=== PATIENT | male | born 1980 | race Caucasian/White ===

== ENCOUNTER 2017-10-20 22:07 | Emergency (ER) | payer MEDICAID ==
[~2017-10-20] VITALS: Ht 185.4 cm; Wt 120.5 kg
[~2017-10-20 22:07] MED LIST: CEPH500C5 PO; CLIN-79 PO; GUAI120015 PO; IBUP-1985 PO; METO50TA17 PO; PANT-47 PO; PANT20TA3 PO; PHEN-716 PO; marijuana
[2017-10-20 22:13] VITALS: BP 161/109
[2017-10-20] MEDS ORDERED: HYDROcodone/acetaminophen 10/325mg tab PO ONE (22:20)
[2017-10-20] MEDS ORDERED: penicillin V potassium 500mg tablet PO ONE (22:20)
[2017-10-20] MEDS ORDERED: PENI500T2 PO (22:21)
[2017-10-20] MEDS ORDERED: HYDR-565 PO (22:22)
== END 2017-10-20 22:30 | disposition home or self-care (01) ==
LOC: ER 22:07
DX: K02.9 Dental caries, unspecified (principal); I10 Essential (primary) hypertension; G43.909 Migraine, unspecified, not intractable, without status migrainosus; F12.10 Cannabis abuse, uncomplicated; Z86.718 Personal history of other venous thrombosis and embolism; Z90.49 Acquired absence of other specified parts of digestive tract; Z98.890 Other specified postprocedural states; Z79.899 Other long term (current) drug therapy
CPT/HCPCS: 99283

== ENCOUNTER 2017-11-07 12:00 | Emergency (ER) | payer MEDICAID ==
[~2017-11-07] VITALS: Ht 185.4 cm; Wt 124.0 kg
[~2017-11-07 12:00] MED LIST changes: -CEPH500C5 PO; +HYDR-565 PO; +PENI500T2 PO
[2017-11-07 12:57] LABS: BASOPHILS % (AUTO) 0 % (0-1); EOSINOPHILS % (AUTO) 0.2 % (0-6); HEMATOCRIT 39.3 % (42.0-52.0); HEMOGLOBIN 13.7 g/dl (14.0-17.9); LYMPHOCYTES # (AUTO) 0.5 X10'3 (1.1-4.8); LYMPHOCYTES % (AUTO) 3.1 % (21-51); MEAN CORPUSCULAR HEMOGLOBIN 28.6 PG (27.0-31.0); MEAN CORPUSCULAR HGB CONC 34.8 % (33.0-36.5); MEAN CORPUSCULAR VOLUME 82.1 FL (78-98); MEAN PLATELET VOLUME 9.5 FL (7.4-10.4); MONOCYTES # (AUTO) 1.3 X10'3 (0-0.9); MONOCYTES % (AUTO) 7.8 % (2-12); NEUTROPHILS # (AUTO) 14.7 X10'3 (1.8-7.7); NEUTROPHILS % (AUTO) 88.9 % (42-75); PLATELET COUNT 164 X10'3 (140-440); RED BLOOD COUNT 4.79 X10'6 (4.70-6.10); RED CELL DISTRIBUTION WIDTH 13.9 % (11.5-14.5); WHITE BLOOD COUNT 16.5 X10'3 (4.5-11.0)
[2017-11-07 13:10] LABS: INR 1.2 INR; PARTIAL THROMBOPLASTIN TIME 32 SECONDS (22-32); PROTHROMBIN TIME 12.3 SECONDS (9.0-12.0)
[2017-11-07 13:24] LABS: ALANINE AMINOTRANSFERASE 38 U/L (12-78); ALBUMIN 3.4 G/DL (3.4-5.0); ALBUMIN/GLOBULIN RATIO 0.8 (1.1-1.5); ALKALINE PHOSPHATASE 86 IU/L (46-116); ANION GAP 12 (8-16); ASPARTATE AMINO TRANSFERASE 22 U/L (10-37); BILIRUBIN,TOTAL 0.7 MG/DL (0.1-1.0); BLOOD UREA NITROGEN 12 MG/DL (7-18); BUN/CREATININE RATIO 10.9 (5.4-32.0); CHLORIDE 101 MMOL/L (99-107); GLUCOSE 135 MG/DL (70-104); SODIUM 137 MMOL/L (135-145); TOTAL CARBON DIOXIDE 23.7 MMOL/L (24-32); TOTAL PROTEIN 7.7 G/DL (6.4-8.2); eGFR 75 ML/MIN
[2017-11-07 13:27] LABS: POTASSIUM 2.8 MMOL/L (3.5-5.1)
[2017-11-07 13:58] LABS: CLARITY,URINE CLOUDY (Clear); COLOR,URINE YELLOW (Yellow); GLUCOSE, URINE NEGATIVE (Neg); KETONES,URINE TRACE mg/dl (Neg); LEUKOCYTE ESTERASE ,URINE MODERATE (Neg); NITRITES, URINE POSITIVE (Neg); OCCULT BLOOD,URINE LARGE (Neg); PH,URINE 6.5 (4.8-8.0); PROTEIN,URINE 100 mg/dl (Neg)
[2017-11-07 14:16] LABS: UA COLLECTION TYPE URINAL
[2017-11-07 14:20] LABS: BACTERIA,URINE 1+ /HPF (Neg); RBC,URINE 50-100 /HPF (0-2); WBC,URINE 30-50 /HPF (0-4)
[2017-11-07 14:21] LABS: MUCUS STRANDS FEW /LPF (Neg); SQUAMOUS EPITHELIAL CELL,UR MANY /LPF (FEW)
[2017-11-07] MEDS ORDERED: normal saline 1000ML IV soln IV ONE (14:25)
[2017-11-07] MEDS ORDERED: ketorolac trometh. 30mg/ml inj. IV ONE (14:25)
[2017-11-07] MEDS ORDERED: potassium 10mEq/100ml NS w/LIDOcaine (10mg/bag) IV ONE (14:25)
[2017-11-07] MEDS ORDERED: ondansetron/PF 4mg/2ml inj IV ONE (14:25)
[2017-11-07 14:37] LABS: MAGNESIUM 1.5 MG/DL (1.5-2.4)
[2017-11-07 14:55] LABS: CLARITY,URINE CLOUDY (Clear); COLOR,URINE YELLOW (Yellow); GLUCOSE, URINE NEGATIVE (Neg); KETONES,URINE TRACE mg/dl (Neg); LEUKOCYTE ESTERASE ,URINE MODERATE (Neg); NITRITES, URINE NEGATIVE (Neg); OCCULT BLOOD,URINE LARGE (Neg); PH,URINE 6.5 (4.8-8.0); PROTEIN,URINE 30 mg/dl (Neg); UROBILINOGEN,URINE 0.2 E.U/dL (0.2-1.0)
[2017-11-07 15:02] LABS: UA COLLECTION TYPE URINAL
[2017-11-07 15:09] LABS: BACTERIA,URINE 2+ /HPF (Neg); MUCUS STRANDS NONE SEEN /LPF (Neg); RBC,URINE 20-50 /HPF (0-2); RENAL CELLS, URINE FEW /HPF; SQUAMOUS EPITHELIAL CELL,UR MODERATE /LPF (FEW); WBC CLUMPS,URINE MODERATE /HPF (NEGATIVE); WBC,URINE 50-100 /HPF (0-4)
[2017-11-07 15:15] LABS: URINE AMPHETAMINE SCREEN NEGATIVE (Neg); URINE BARBITUATE SCREEN NEGATIVE (Neg); URINE BENZODIAZEPINES SCREEN NEGATIVE (Neg); URINE CANNABINOID SCREEN POSITIVE (Neg); URINE COCAINE SCREEN NEGATIVE (Neg); URINE METHADONE SCREEN NEGATIVE (Neg); URINE OPIATE SCREEN NEGATIVE (Neg); URINE PHENCYCLIDINE SCREEN NEGATIVE (Neg)
[2017-11-07] MEDS ORDERED: CefTRIAXone 2gm/NS 100ml IVPB 100 ML IV ONE (16:10)
[2017-11-07] MEDS ORDERED: diphenhydrAMINE 50 mg/ml inj IV ONE (16:15)
[2017-11-07] MEDS ORDERED: HYDROmorphone 1 mg/ml syringe IV PRN (16:15)
[2017-11-07] MEDS ORDERED: metoclopramide 5 mg/ml inj IV ONE (16:15)
[2017-11-07] MEDS ORDERED: LORazepam 2 mg/ml vial IV ONE (16:15)
[2017-11-07] MEDS ORDERED: potassium Cl 20 mEq SR tablet PO ONE (17:15)
[2017-11-07] MEDS ORDERED: IBUP-1986 PO (17:57)
[2017-11-07] MEDS ORDERED: TAM75C PO (17:57)
[2017-11-07] MEDS ORDERED: TRAM50TA2 PO (17:57)
[2017-11-07] MEDS ORDERED: ONDA4TAB12 PO (17:57)
[2017-11-07] MEDS ORDERED: CEPH500C2 PO (17:57)
[2017-11-07 18:13] VITALS: BP 122/67
== END 2017-11-07 18:18 | disposition home or self-care (01) ==
LOC: ER 12:00
DX: N39.0 Urinary tract infection, site not specified (principal); J09.X2 Influenza due to identified novel influenza A virus with other respiratory manifestations; G43.909 Migraine, unspecified, not intractable, without status migrainosus; I10 Essential (primary) hypertension; F17.210 Nicotine dependence, cigarettes, uncomplicated; F12.10 Cannabis abuse, uncomplicated; Z86.718 Personal history of other venous thrombosis and embolism; Z90.49 Acquired absence of other specified parts of digestive tract; Z98.890 Other specified postprocedural states; Z79.899 Other long term (current) drug therapy; Z56.0 Unemployment, unspecified
CPT/HCPCS: 36415; 71045; 80053; 80305; 81001; 83605; 83735; 84145; 85025; 85610; 85730; 87040; 87077; 87088; 87186; 87491; 87502; 87503; 87591; 93005; 96361; 96365; 96375; 99285; J0696; J1200; J1885; J2060; J2405; J2765; J3480; J7030; 96374

== ENCOUNTER 2017-11-09 11:22 | Emergency (ER) | payer MEDICAID ==
[~2017-11-09] VITALS: Ht 185.4 cm; Wt 122.0 kg
[~2017-11-09 11:22] MED LIST changes: +CEPH500C2 PO; +IBUP-1986 PO; +ONDA4TAB12 PO; +TAM75C PO; +TRAM50TA2 PO
[2017-11-09] MEDS ORDERED: FLO0.4C PO (12:11)
[2017-11-09] MEDS ORDERED: PHEN-716 PO (12:11)
[2017-11-09 12:21] VITALS: BP 135/65
== END 2017-11-09 12:32 | disposition home or self-care (01) ==
LOC: ER 11:22
DX: N39.0 Urinary tract infection, site not specified (principal); I10 Essential (primary) hypertension; G43.909 Migraine, unspecified, not intractable, without status migrainosus; F12.10 Cannabis abuse, uncomplicated
CPT/HCPCS: 99283

== ENCOUNTER 2017-11-11 01:10 | Emergency (ER) | payer MEDICAID ==
[~2017-11-11] VITALS: Ht 185.4 cm; Wt 121.3 kg
[~2017-11-11 01:10] MED LIST changes: +FLO0.4C PO; -GUAI120015 PO; -HYDR-565 PO; -METO50TA17 PO; -PANT-47 PO; -PANT20TA3 PO; -PENI500T2 PO
[2017-11-11] MEDS ORDERED: morphine 5 MG/ML injection IV ONE (01:45)
[2017-11-11] MEDS ORDERED: ondansetron/PF 4mg/2ml inj IV ONE (01:45)
[2017-11-11 02:06] LABS: BASOPHILS % (AUTO) 0.3 % (0-1); EOSINOPHILS % (AUTO) 0.4 % (0-6); HEMATOCRIT 38.8 % (42.0-52.0); HEMOGLOBIN 13.5 g/dl (14.0-17.9); LYMPHOCYTES # (AUTO) 1.6 X10'3 (1.1-4.8); LYMPHOCYTES % (AUTO) 15.5 % (21-51); MEAN CORPUSCULAR HEMOGLOBIN 28.5 PG (27.0-31.0); MEAN CORPUSCULAR HGB CONC 34.8 % (33.0-36.5); MEAN CORPUSCULAR VOLUME 81.7 FL (78-98); MEAN PLATELET VOLUME 9.3 FL (7.4-10.4); MONOCYTES # (AUTO) 0.8 X10'3 (0-0.9); MONOCYTES % (AUTO) 7.9 % (2-12); NEUTROPHILS # (AUTO) 7.8 X10'3 (1.8-7.7); NEUTROPHILS % (AUTO) 75.9 % (42-75); PLATELET COUNT 236 X10'3 (140-440); RED BLOOD COUNT 4.75 X10'6 (4.70-6.10); RED CELL DISTRIBUTION WIDTH 13.9 % (11.5-14.5); WHITE BLOOD COUNT 10.3 X10'3 (4.5-11.0)
[2017-11-11] MEDS ORDERED: iohexol 300mg/ml 100ml inj. ONE (02:10)
[2017-11-11] MEDS ORDERED: LORazepam 2 mg/ml vial IV ONE (02:15)
[2017-11-11] MEDS ORDERED: ketorolac trometh. 30mg/ml inj. IV ONE (02:15)
[2017-11-11 02:21] LABS: ALANINE AMINOTRANSFERASE 51 U/L (12-78); ALBUMIN 3.6 G/DL (3.4-5.0); ALBUMIN/GLOBULIN RATIO 0.8 (1.1-1.5); ALKALINE PHOSPHATASE 96 IU/L (46-116); ANION GAP 9 (8-16); ASPARTATE AMINO TRANSFERASE 27 U/L (10-37); BILIRUBIN,TOTAL 0.4 MG/DL (0.1-1.0); BLOOD UREA NITROGEN 14 MG/DL (7-18); BUN/CREATININE RATIO 11.7 (5.4-32.0); CALCIUM 8.1 MG/DL (8.5-10.1); CHLORIDE 107 MMOL/L (99-107); GLUCOSE 101 MG/DL (70-104); SODIUM 143 MMOL/L (135-145); TOTAL CARBON DIOXIDE 26.6 MMOL/L (24-32); eGFR 68 ML/MIN
[2017-11-11 02:31] LABS: POTASSIUM 2.9 MMOL/L (3.5-5.1)
[2017-11-11 02:43] LABS: URINE AMPHETAMINE SCREEN NEGATIVE (Neg); URINE BARBITUATE SCREEN NEGATIVE (Neg); URINE BENZODIAZEPINES SCREEN NEGATIVE (Neg); URINE CANNABINOID SCREEN POSITIVE (Neg); URINE COCAINE SCREEN NEGATIVE (Neg); URINE METHADONE SCREEN NEGATIVE (Neg); URINE OPIATE SCREEN POSITIVE (Neg); URINE PHENCYCLIDINE SCREEN NEGATIVE (Neg)
[2017-11-11 02:58] LABS: CLARITY,URINE CLEAR (Clear); COLOR,URINE ORANGE (Yellow); GLUCOSE, URINE 250 mg/dl (Neg); LEUKOCYTE ESTERASE ,URINE SMALL (Neg); OCCULT BLOOD,URINE MODERATE (Neg)
[2017-11-11 03:02] LABS: UA COLLECTION TYPE CLN CATCH MIDSTREAM
[2017-11-11] MEDS ORDERED: potassium chloride 10mEq CAPSULE.SA PO STA (03:41)
[2017-11-11 03:46] LABS: RBC,URINE 20-50 /HPF (0-2); WBC,URINE 20-30 /HPF (0-4)
[2017-11-11 03:47] LABS: BACTERIA,URINE FEW /HPF (Neg); MUCUS STRANDS MODERATE /LPF (Neg); SPERM FEW /HPF (NEGATIVE); SQUAMOUS EPITHELIAL CELL,UR MODERATE /LPF (FEW)
[2017-11-11] MEDS ORDERED: cefTRIAXone 1g/NS 100ml IVPB 100 ML IV ONE (03:50)
[2017-11-11] MEDS ORDERED: potassium Cl 20 mEq SR tablet PO STA (03:55)
[2017-11-11] MEDS ORDERED: cefTRIAXone 1g/NS 100ml IVPB 50 ML IV ONE (03:55)
[2017-11-11] MEDS ORDERED: HYDR-3965 PO (03:59)
[2017-11-11] MEDS ORDERED: IBUP-1986 PO (03:59)
[2017-11-11] MEDS ORDERED: CIPR-259 PO (03:59)
[2017-11-11] MEDS ORDERED: CefTRIAXone 1 gm/50ml D5W ADV 50 ML IV ONE (04:15)
[2017-11-11] MEDS ORDERED: CefTRIAXone/D5W-Rocephin 1gm 50 ML IV ONE (04:18)
[2017-11-11 04:50] VITALS: BP 124/69
== END 2017-11-11 04:53 | disposition home or self-care (01) ==
LOC: ER 01:11
DX: N39.0 Urinary tract infection, site not specified (principal); G43.909 Migraine, unspecified, not intractable, without status migrainosus; I10 Essential (primary) hypertension; F12.90 Cannabis use, unspecified, uncomplicated; Z90.49 Acquired absence of other specified parts of digestive tract; Z86.718 Personal history of other venous thrombosis and embolism; Z56.0 Unemployment, unspecified; Z98.890 Other specified postprocedural states
CPT/HCPCS: 36415; 74177; 80053; 80305; 81001; 83605; 85025; 87088; 96365; 96375; 99285; J0696; J1885; J2060; J2405; J7030; Q9967

== ENCOUNTER 2017-12-08 16:06 | Emergency (ER) | payer MEDICAID ==
[~2017-12-08] VITALS: Ht 185.4 cm; Wt 118.3 kg
[~2017-12-08 16:06] MED LIST changes: +HYDR-3965 PO; -TAM75C PO
[2017-12-08] MEDS ORDERED: predniSONE 20 mg tablet PO ONE (18:20)
[2017-12-08] MEDS ORDERED: diphenhydrAMINE 25mg capsule PO ONE (18:20)
[2017-12-08] MEDS ORDERED: triamcinolone acetonide 40mg/ml inj IM ONE (18:20)
[2017-12-08] MEDS ORDERED: TRIA15CR61 TOP (18:24)
[2017-12-08] MEDS ORDERED: HYDR28CR14 TOP (18:24)
[2017-12-08] MEDS ORDERED: PRED20TA PO (18:24)
[2017-12-08] MEDS ORDERED: DIPH25CA83 PO (18:24)
[2017-12-08 18:37] VITALS: BP 130/78
== END 2017-12-08 18:40 | disposition home or self-care (01) ==
LOC: ER 16:06
DX: L23.7 Allergic contact dermatitis due to plants, except food (principal); F12.10 Cannabis abuse, uncomplicated; I10 Essential (primary) hypertension; G43.909 Migraine, unspecified, not intractable, without status migrainosus; Z86.718 Personal history of other venous thrombosis and embolism; Z98.890 Other specified postprocedural states; Z79.899 Other long term (current) drug therapy; Z56.0 Unemployment, unspecified
CPT/HCPCS: 96372; 99283; J3301; J7512; Q0163

== ENCOUNTER 2017-12-15 09:49 | Emergency (ER) | payer MEDICAID ==
[~2017-12-15] VITALS: Ht 185.4 cm; Wt 116.0 kg
[~2017-12-15 09:49] MED LIST changes: -CEPH500C2 PO; +DIPH25CA83 PO; -FLO0.4C PO; -HYDR-3965 PO; +HYDR28CR14 TOP; +PRED20TA PO; -TRAM50TA2 PO; +TRIA15CR61 TOP
[2017-12-15] MEDS ORDERED: triamcinolone acetonide 40mg/ml inj IM ONE (10:35)
[2017-12-15] MEDS ORDERED: PRED20TA PO (10:37)
[2017-12-15 10:46] VITALS: BP 126/79
== END 2017-12-15 10:47 | disposition home or self-care (01) ==
LOC: ER 09:49
DX: L23.7 Allergic contact dermatitis due to plants, except food (principal); G43.909 Migraine, unspecified, not intractable, without status migrainosus; I10 Essential (primary) hypertension; F12.10 Cannabis abuse, uncomplicated; Z86.718 Personal history of other venous thrombosis and embolism; Z90.49 Acquired absence of other specified parts of digestive tract; Z98.890 Other specified postprocedural states; Z56.0 Unemployment, unspecified; Z79.899 Other long term (current) drug therapy
CPT/HCPCS: 96372; 99283; J3301

== ENCOUNTER 2018-02-11 13:52 | Emergency (ER) | payer MEDICAID ==
[~2018-02-11] VITALS: Ht 185.4 cm; Wt 109.1 kg
[~2018-02-11 13:52] MED LIST changes: -PRED20TA PO; -TRIA15CR61 TOP
[2018-02-11 14:30] VITALS: BP 145/92
[2018-02-11] MEDS ORDERED: triamcinolone acetonide 40mg/ml inj IM ONE (14:55)
[2018-02-11] MEDS ORDERED: PRED10TA23 PO (15:03)
== END 2018-02-11 15:27 | disposition home or self-care (01) ==
LOC: ER 13:52
DX: L23.7 Allergic contact dermatitis due to plants, except food (principal); G43.909 Migraine, unspecified, not intractable, without status migrainosus; I10 Essential (primary) hypertension; F12.10 Cannabis abuse, uncomplicated; Z86.718 Personal history of other venous thrombosis and embolism; Z90.49 Acquired absence of other specified parts of digestive tract; Z98.890 Other specified postprocedural states; Z56.0 Unemployment, unspecified; Z79.899 Other long term (current) drug therapy
CPT/HCPCS: 96372; 99283; J3301

== ENCOUNTER 2018-02-24 07:50 | Emergency (ER) | payer MEDICAID ==
[~2018-02-24] VITALS: Ht 185.4 cm; Wt 115.0 kg
[~2018-02-24 07:50] MED LIST changes: +PRED10TA23 PO
[2018-02-24] MEDS ORDERED: ondansetron 4mg rapidly disintigrating tab PO ONE (08:10)
[2018-02-24] MEDS ORDERED: ONDA4TAB12 PO (08:14)
[2018-02-24 08:29] VITALS: BP 163/116
== END 2018-02-24 08:34 | disposition home or self-care (01) ==
LOC: ER 07:51
DX: R11.2 Nausea with vomiting, unspecified (principal); I10 Essential (primary) hypertension; F17.210 Nicotine dependence, cigarettes, uncomplicated; F12.10 Cannabis abuse, uncomplicated; Z86.718 Personal history of other venous thrombosis and embolism; Z90.49 Acquired absence of other specified parts of digestive tract; Z56.0 Unemployment, unspecified
CPT/HCPCS: 99283

== ENCOUNTER 2018-03-16 11:49 | Emergency (ER) | payer MEDICAID ==
[~2018-03-16] VITALS: Ht 185.4 cm; Wt 111.0 kg
[~2018-03-16 11:49] MED LIST changes: -CLIN-79 PO; +CLIN150C8 PO; -PRED10TA23 PO
[2018-03-16 12:04] VITALS: BP 137/92
[2018-03-16] MEDS ORDERED: METH4TAB3 PO (12:14)
[2018-03-16] MEDS ORDERED: triamcinolone acetonide 40mg/ml inj IM ONE (12:15)
== END 2018-03-16 12:27 | disposition home or self-care (01) ==
LOC: ER 11:50
DX: L23.7 Allergic contact dermatitis due to plants, except food (principal); G43.909 Migraine, unspecified, not intractable, without status migrainosus; F12.90 Cannabis use, unspecified, uncomplicated; I10 Essential (primary) hypertension; Z86.718 Personal history of other venous thrombosis and embolism; Z90.49 Acquired absence of other specified parts of digestive tract; Z98.890 Other specified postprocedural states; Z56.0 Unemployment, unspecified; Z79.899 Other long term (current) drug therapy
CPT/HCPCS: 96372; 99283; J3301

== ENCOUNTER 2018-09-25 10:09 | Emergency (ER) | payer MEDICAID ==
[~2018-09-25] VITALS: Ht 185.4 cm; Wt 113.6 kg
[~2018-09-25 10:09] MED LIST changes: +METH4TAB3 PO
[2018-09-25 10:35] LABS: BASOPHILS % (AUTO) 0.3 % (0-1); EOSINOPHILS # (AUTO) 0.3 X10'3 (0-0.9); EOSINOPHILS % (AUTO) 2.3 % (0-6); HEMATOCRIT 45.3 % (42.0-52.0); LYMPHOCYTES # (AUTO) 2.2 X10'3 (1.1-4.8); LYMPHOCYTES % (AUTO) 19.5 % (21-51); MEAN CORPUSCULAR HEMOGLOBIN 27.8 PG (27.0-31.0); MEAN CORPUSCULAR HGB CONC 33.2 % (33.0-36.5); MEAN CORPUSCULAR VOLUME 83.7 FL (78-98); MEAN PLATELET VOLUME 9.5 FL (7.4-10.4); MONOCYTES # (AUTO) 0.7 X10'3 (0-0.9); MONOCYTES % (AUTO) 5.8 % (2-12); NEUTROPHILS # (AUTO) 8.2 X10'3 (1.8-7.7); NEUTROPHILS % (AUTO) 72.1 % (42-75); PLATELET COUNT 229 X10'3 (140-440); RED BLOOD COUNT 5.41 X10'6 (4.70-6.10); WHITE BLOOD COUNT 11.4 X10'3 (4.5-11.0)
[2018-09-25] MEDS ORDERED: ketorolac trometh. 30mg/ml inj. IM ONE (10:35)
[2018-09-25 10:49] LABS: ALANINE AMINOTRANSFERASE 32 U/L (12-78); ALBUMIN 3.8 G/DL (3.4-5.0); ALBUMIN/GLOBULIN RATIO 0.9 (1.1-1.5); ALKALINE PHOSPHATASE 94 IU/L (46-116); ANION GAP 10 (8-16); ASPARTATE AMINO TRANSFERASE 16 U/L (10-37); BILIRUBIN,TOTAL 0.3 MG/DL (0.1-1.0); BLOOD UREA NITROGEN 18 MG/DL (7-18); BUN/CREATININE RATIO 22.5 (5.4-32.0); CALCIUM 8.5 MG/DL (8.5-10.1); CHLORIDE 104 MMOL/L (99-107); GLUCOSE 101 MG/DL (70-104); POTASSIUM 4.3 MMOL/L (3.5-5.1); SODIUM 141 MMOL/L (135-145); TOTAL CARBON DIOXIDE 26.9 MMOL/L (24-32); eGFR > 90 ML/MIN
[2018-09-25 10:55] LABS: INR 1.1 INR; PARTIAL THROMBOPLASTIN TIME 29 SECONDS (22-32); PROTHROMBIN TIME 10.8 SECONDS (9.0-12.0)
[2018-09-25 12:09] VITALS: BP 141/100
== END 2018-09-25 12:11 | disposition home or self-care (01) ==
LOC: ER 10:10
DX: R07.89 Other chest pain (principal); I10 Essential (primary) hypertension; F17.210 Nicotine dependence, cigarettes, uncomplicated; F12.90 Cannabis use, unspecified, uncomplicated; Z86.718 Personal history of other venous thrombosis and embolism; Z90.49 Acquired absence of other specified parts of digestive tract; Z98.890 Other specified postprocedural states; Z56.0 Unemployment, unspecified; Z79.2 Long term (current) use of antibiotics; Z79.899 Other long term (current) drug therapy
CPT/HCPCS: 36415; 71045; 80053; 84484; 85025; 85610; 85730; 93005; 96372; 99284; J1885

== ENCOUNTER 2018-10-12 11:04 | Emergency (ER) | payer MEDICAID ==
[~2018-10-12] VITALS: Ht 185.4 cm; Wt 110.6 kg
[2018-10-12 11:05] VITALS: BP 123/96
[2018-10-12] MEDS ORDERED: PENI250T2 PO (11:16)
[2018-10-12] MEDS ORDERED: NAPR-56 PO (11:16)
== END 2018-10-12 11:42 | disposition home or self-care (01) ==
LOC: ER 11:05
DX: K08.89 Other specified disorders of teeth and supporting structures (principal); G43.909 Migraine, unspecified, not intractable, without status migrainosus; I10 Essential (primary) hypertension; Z86.718 Personal history of other venous thrombosis and embolism; F12.90 Cannabis use, unspecified, uncomplicated; Z90.49 Acquired absence of other specified parts of digestive tract; Z98.890 Other specified postprocedural states; Z79.2 Long term (current) use of antibiotics; Z79.899 Other long term (current) drug therapy; Z56.0 Unemployment, unspecified
CPT/HCPCS: 99283

== ENCOUNTER 2018-10-18 19:35 | Emergency (ER) | payer MEDICAID ==
[~2018-10-18] VITALS: Ht 185.4 cm; Wt 110.0 kg
[~2018-10-18 19:35] MED LIST changes: +NAPR-56 PO; +PENI250T2 PO
[2018-10-18 19:39] VITALS: BP 134/90
[2018-10-18] MEDS ORDERED: CLIN150C2 PO (20:28)
[2018-10-18] MEDS ORDERED: NAPR-56 PO (20:28)
== END 2018-10-18 20:44 | disposition home or self-care (01) ==
LOC: ER 19:36
DX: K08.89 Other specified disorders of teeth and supporting structures (principal); G43.909 Migraine, unspecified, not intractable, without status migrainosus; I10 Essential (primary) hypertension; Z86.718 Personal history of other venous thrombosis and embolism; F12.90 Cannabis use, unspecified, uncomplicated; Z90.49 Acquired absence of other specified parts of digestive tract; Z98.890 Other specified postprocedural states; Z79.2 Long term (current) use of antibiotics; Z79.899 Other long term (current) drug therapy; Z56.0 Unemployment, unspecified
CPT/HCPCS: 99283

== ENCOUNTER 2018-12-01 12:56 | Emergency (ER) | payer MEDICAID ==
[~2018-12-01] VITALS: Ht 185.4 cm; Wt 113.6 kg
[~2018-12-01 12:56] MED LIST changes: -NAPR-56 PO; -PENI250T2 PO
[2018-12-01] MEDS ORDERED: LIDOcaine 2% 10ml TOPICAL JELLY (Urojet) MM ONE (15:45)
[2018-12-01] MEDS ORDERED: ondansetron/PF 4mg/2ml inj IV ONE (16:15)
[2018-12-01] MEDS ORDERED: normal saline 1000ML IV soln IVB ONE (16:15)
[2018-12-01] MEDS ORDERED: morphine 4 MG/ML inj SYRINge IV PRN (16:15)
[2018-12-01] MEDS ORDERED: iohexol 300mg/ml 100ml inj. ONE (16:23)
[2018-12-01 17:03] LABS: BASOPHILS % (AUTO) 0.3 % (0-1); EOSINOPHILS # (AUTO) 0.1 X10'3 (0-0.9); EOSINOPHILS % (AUTO) 0.6 % (0-6); HEMATOCRIT 47.6 % (42.0-52.0); HEMOGLOBIN 15.6 g/dl (14.0-17.9); LYMPHOCYTES # (AUTO) 2.2 X10'3 (1.1-4.8); LYMPHOCYTES % (AUTO) 16.6 % (21-51); MEAN CORPUSCULAR HEMOGLOBIN 27.6 PG (27.0-31.0); MEAN CORPUSCULAR HGB CONC 32.9 g/dL (33.0-36.5); MEAN CORPUSCULAR VOLUME 83.8 FL (78-98); MEAN PLATELET VOLUME 9.4 FL (7.4-10.4); MONOCYTES % (AUTO) 7.7 % (2-12); NEUTROPHILS # (AUTO) 9.8 X10'3 (1.8-7.7); NEUTROPHILS % (AUTO) 74.8 % (42-75); PLATELET COUNT 221 X10'3 (140-440); RED BLOOD COUNT 5.67 X10'6 (4.70-6.10); RED CELL DISTRIBUTION WIDTH 15.1 % (11.5-14.5); WHITE BLOOD COUNT 13.1 X10'3 (4.5-11.0)
[2018-12-01] MEDS ORDERED: morphine 4 MG/ML inj SYRINge IV ONE (17:15)
[2018-12-01] MEDS ORDERED: ketorolac trometh. 30mg/ml inj. IV ONE (17:15)
[2018-12-01 17:16] LABS: ALANINE AMINOTRANSFERASE 39 U/L (12-78); ALBUMIN 4.3 G/DL (3.4-5.0); ALKALINE PHOSPHATASE 105 IU/L (46-116); ANION GAP 14 (8-16); ASPARTATE AMINO TRANSFERASE 25 U/L (10-37); BILIRUBIN,TOTAL 0.5 MG/DL (0.1-1.0); BLOOD UREA NITROGEN 15 MG/DL (7-18); BUN/CREATININE RATIO 16.3 (5.4-32.0); CALCIUM 9.2 MG/DL (8.5-10.1); CHLORIDE 105 MMOL/L (99-107); CREATININE 0.92 MG/DL (0.60-1.10); GLUCOSE 82 MG/DL (70-104); SODIUM 143 MMOL/L (135-145); TOTAL PROTEIN 8.7 G/DL (6.4-8.2); eGFR > 90 ML/MIN
[2018-12-01 18:02] VITALS: BP 145/95
[2018-12-01] MEDS ORDERED: CIPR-259 PO (18:28)
[2018-12-01] MEDS ORDERED: METR250T PO (18:28)
[2018-12-01] MEDS ORDERED: HYDR-4383 PO (18:28)
== END 2018-12-01 18:46 | disposition home or self-care (01) ==
LOC: ER 12:57
DX: K52.89 Other specified noninfective gastroenteritis and colitis (principal); K62.89 Other specified diseases of anus and rectum; G43.909 Migraine, unspecified, not intractable, without status migrainosus; I10 Essential (primary) hypertension; F12.90 Cannabis use, unspecified, uncomplicated; Z56.0 Unemployment, unspecified; Z86.718 Personal history of other venous thrombosis and embolism; Z90.49 Acquired absence of other specified parts of digestive tract; Z98.890 Other specified postprocedural states
CPT/HCPCS: 36415; 74177; 80053; 85025; 96374; 96375; 96376; 99284; J1885; J2270; J2405; J7030; Q9967; 96361

== ENCOUNTER 2019-02-07 07:36 | Emergency (ER) | payer MEDICAID ==
[~2019-02-07] VITALS: Ht 185.4 cm; Wt 104.5 kg
[~2019-02-07 07:36] MED LIST changes: +HYDR-3965 PO; +HYDR-4383 PO
[2019-02-07 07:44] VITALS: BP 151/99
--- NOTE | 2019-02-07 08:15 | NUR ---
Patient ambulated to restroom with steady gait. urine sample collected and sent to lab.
[2019-02-07] MEDS ORDERED: ketorolac tromethamine 15mg/ml inj. IV ONE (08:40)
[2019-02-07] MEDS ORDERED: normal saline 1000ML IV soln IVB ONE (08:40)
[2019-02-07] MEDS ORDERED: ondansetron/PF 4mg/2ml inj IV ONE (08:40)
[2019-02-07 08:41] LABS: CLARITY,URINE CLOUDY (Clear); COLOR,URINE YELLOW (Yellow); GLUCOSE, URINE NEGATIVE (Neg); KETONES,URINE TRACE mg/dl (Neg); LEUKOCYTE ESTERASE ,URINE SMALL (Neg); NITRITES, URINE POSITIVE (Neg); OCCULT BLOOD,URINE SMALL (Neg); PROTEIN,URINE 30 mg/dl (Neg); UROBILINOGEN,URINE 0.2 E.U/dL (0.2-1.0)
[2019-02-07 08:50] LABS: UA COLLECTION TYPE CLN CATCH MIDSTREAM
[2019-02-07 08:53] LABS: BACTERIA,URINE 3+ /HPF (Neg); RBC,URINE 0-2 /HPF (0-2); SQUAMOUS EPITHELIAL CELL,UR MODERATE /LPF (FEW); WBC,URINE 50-100 /HPF (0-4)
[2019-02-07 08:54] LABS: MUCUS STRANDS MODERATE /LPF (Neg)
[2019-02-07] MEDS ORDERED: sulfamethoxazole/trimethoprim DS (800/160mg) tablet PO ONE (09:00)
[2019-02-07] MEDS ORDERED: phenazopyridine 100mg tablet PO ONE (09:00)
[2019-02-07] MEDS ORDERED: SULF1TAB49 PO (09:02)
[2019-02-07] MEDS ORDERED: PHEN-716 PO (09:02)
[2019-02-07] MEDS ORDERED: CefTRIAXone 1000mg IM Kit (w/lidocaine diluent) IM ONE (09:05)
== END 2019-02-07 09:16 | disposition home or self-care (01) ==
LOC: ER 07:37
DX: N39.0 Urinary tract infection, site not specified (principal); G43.909 Migraine, unspecified, not intractable, without status migrainosus; I10 Essential (primary) hypertension; F12.90 Cannabis use, unspecified, uncomplicated; Z86.718 Personal history of other venous thrombosis and embolism; Z90.49 Acquired absence of other specified parts of digestive tract; Z98.890 Other specified postprocedural states; Z56.0 Unemployment, unspecified; Z79.899 Other long term (current) drug therapy
CPT/HCPCS: 81001; 87088; 96372; 99283; J0696

== ENCOUNTER 2019-04-27 19:14 | Emergency (ER) | payer MEDICAID ==
[~2019-04-27] VITALS: Ht 185.4 cm; Wt 112.6 kg
[~2019-04-27 19:14] MED LIST changes: -HYDR-3965 PO
[2019-04-27 19:47] VITALS: BP 130/82
[2019-04-27] MEDS ORDERED: NAPR-56 PO (20:13)
[2019-04-27] MEDS ORDERED: PENI250T2 PO (20:13)
== END 2019-04-27 20:23 | disposition home or self-care (01) ==
LOC: ER 19:14
DX: K02.9 Dental caries, unspecified (principal); I10 Essential (primary) hypertension; F31.9 Bipolar disorder, unspecified; F12.90 Cannabis use, unspecified, uncomplicated; Z90.49 Acquired absence of other specified parts of digestive tract; Z98.890 Other specified postprocedural states; Z56.0 Unemployment, unspecified; Z86.718 Personal history of other venous thrombosis and embolism; Z79.2 Long term (current) use of antibiotics; Z79.899 Other long term (current) drug therapy
CPT/HCPCS: 99283

== ENCOUNTER 2019-05-06 10:07 | Emergency (ER) | payer MEDICAID ==
[~2019-05-06] VITALS: Ht 185.4 cm; Wt 109.8 kg
[~2019-05-06 10:07] MED LIST changes: +NAPR-56 PO; +PENI250T2 PO
[2019-05-06] MEDS ORDERED: diphenhydrAMINE 25mg capsule PO ONE (10:50)
[2019-05-06] MEDS ORDERED: triamcinolone acetonide 40mg/ml inj IM ONE (10:50)
[2019-05-06 11:17] VITALS: BP 147/95
== END 2019-05-06 11:22 | disposition home or self-care (01) ==
LOC: ER 10:07
DX: L30.9 Dermatitis, unspecified (principal); G43.909 Migraine, unspecified, not intractable, without status migrainosus; I10 Essential (primary) hypertension; F31.9 Bipolar disorder, unspecified; F17.200 Nicotine dependence, unspecified, uncomplicated; F12.90 Cannabis use, unspecified, uncomplicated; F10.99 Alcohol use, unspecified with unspecified alcohol-induced disorder; Z86.718 Personal history of other venous thrombosis and embolism; Z90.49 Acquired absence of other specified parts of digestive tract; Z56.0 Unemployment, unspecified; Z98.890 Other specified postprocedural states; Z79.899 Other long term (current) drug therapy; Y90.9 Presence of alcohol in blood, level not specified
CPT/HCPCS: 96372; 99283; J3301; Q0163

== ENCOUNTER 2019-05-09 16:19 | Emergency (ER) | payer MEDICAID ==
[~2019-05-09] VITALS: Ht 185.4 cm; Wt 110.5 kg
[~2019-05-09 16:19] MED LIST changes: -PENI250T2 PO
[2019-05-09] MEDS ORDERED: METH4TAB3 PO (16:59)
[2019-05-09] MEDS ORDERED: ibuprofen tablet 400 MG TABLET PO ONE (17:00)
[2019-05-09] MEDS ORDERED: methylPREDNISolone sod succ 125mg/2ml vial IM ONE (17:00)
[2019-05-09 17:34] VITALS: BP 123/84
== END 2019-05-09 17:37 | disposition home or self-care (01) ==
LOC: ER 16:19
DX: L23.7 Allergic contact dermatitis due to plants, except food (principal); G43.909 Migraine, unspecified, not intractable, without status migrainosus; I10 Essential (primary) hypertension; F31.9 Bipolar disorder, unspecified; F12.90 Cannabis use, unspecified, uncomplicated; F10.99 Alcohol use, unspecified with unspecified alcohol-induced disorder; Z86.718 Personal history of other venous thrombosis and embolism; Z90.49 Acquired absence of other specified parts of digestive tract; Z98.890 Other specified postprocedural states; Z56.0 Unemployment, unspecified; Z79.899 Other long term (current) drug therapy; Y90.9 Presence of alcohol in blood, level not specified
CPT/HCPCS: 96372; 99283; J2930

== ENCOUNTER 2019-07-12 17:28 | Emergency (ER) | payer MEDICAID ==
[~2019-07-12] VITALS: Ht 185.4 cm; Wt 90.0 kg
[~2019-07-12 17:28] MED LIST changes: -NAPR-56 PO
[2019-07-12 18:38] VITALS: BP 172/86
--- NOTE | 2019-07-12 19:11 | NUR ---
PT UP TO BATHROOM X3 SINCE MY ARRIVAL AT 1830
--- NOTE | 2019-07-12 19:16 | NUR ---
PT GIVEN WARM BLANKET
[2019-07-12] MEDS ORDERED: HYDROcodone/acetaminophen 5mg/325mg tablet PO ONE (19:35)
[2019-07-12 19:38] LABS: CLARITY,URINE CLOUDY (Clear); COLOR,URINE YELLOW (Yellow); GLUCOSE, URINE NEGATIVE (Neg); KETONES,URINE NEGATIVE (Neg); LEUKOCYTE ESTERASE ,URINE LARGE (Neg); NITRITES, URINE NEGATIVE (Neg); OCCULT BLOOD,URINE LARGE (Neg); PROTEIN,URINE 100 mg/dl (Neg)
[2019-07-12 19:44] LABS: URINE AMPHETAMINE SCREEN POSITIVE (Neg); URINE BARBITUATE SCREEN NEGATIVE (Neg); URINE BENZODIAZEPINES SCREEN NEGATIVE (Neg); URINE CANNABINOID SCREEN POSITIVE (Neg); URINE COCAINE SCREEN NEGATIVE (Neg); URINE METHADONE SCREEN NEGATIVE (Neg); URINE OPIATE SCREEN NEGATIVE (Neg); URINE PHENCYCLIDINE SCREEN NEGATIVE (Neg)
--- NOTE | 2019-07-12 19:44 | NUR ---
DISCUSSED PT RIDE HOME PRIOR TO MEDICATING WITH [facility]. PT VERBALIZES HE WAS BROUGHT HERE BY HIS GRNADMA AND SHE WILL BE ABLE TO PICK HIM UP AT DISCHARGE .
[2019-07-12 19:50] LABS: UA COLLECTION TYPE CLN CATCH MIDSTREAM
[2019-07-12 19:51] LABS: BACTERIA,URINE 3+ /HPF (Neg); RBC,URINE 20-50 /HPF (0-2); SQUAMOUS EPITHELIAL CELL,UR MODERATE /LPF (FEW); WBC CLUMPS,URINE MODERATE /HPF (NEGATIVE); WBC,URINE 30-50 /HPF (0-4)
[2019-07-12] MEDS ORDERED: HYDR-3965 PO (20:21)
[2019-07-12] MEDS ORDERED: SULF1TAB49 PO (20:21)
[2019-07-12] MEDS ORDERED: PHEN-824 PO (20:21)
== END 2019-07-12 20:40 | disposition home or self-care (01) ==
LOC: ER 17:31
DX: N39.0 Urinary tract infection, site not specified (principal); G43.909 Migraine, unspecified, not intractable, without status migrainosus; I10 Essential (primary) hypertension; F31.9 Bipolar disorder, unspecified; F12.90 Cannabis use, unspecified, uncomplicated; Z90.49 Acquired absence of other specified parts of digestive tract; Z98.890 Other specified postprocedural states; Z86.718 Personal history of other venous thrombosis and embolism; Z56.0 Unemployment, unspecified; Z79.2 Long term (current) use of antibiotics; Z79.899 Other long term (current) drug therapy
CPT/HCPCS: 80305; 81001; 99283

== ENCOUNTER 2019-08-22 21:55 | Emergency (ER) | payer MEDICAID ==
[~2019-08-22] VITALS: Ht 185.4 cm; Wt 109.0 kg
[~2019-08-22 21:55] MED LIST changes: +PHEN-824 PO
[2019-08-22] MEDS ORDERED: HYDROcodone/acetaminophen 5mg/325mg tablet PO ONE (23:10)
[2019-08-22 23:39] VITALS: BP 139/93
== END 2019-08-22 23:47 | disposition home or self-care (01) ==
LOC: ER 21:56
DX: S93.492A Sprain of other ligament of left ankle, initial encounter (principal); G43.909 Migraine, unspecified, not intractable, without status migrainosus; I10 Essential (primary) hypertension; F31.9 Bipolar disorder, unspecified; F10.99 Alcohol use, unspecified with unspecified alcohol-induced disorder; F12.90 Cannabis use, unspecified, uncomplicated; Z86.718 Personal history of other venous thrombosis and embolism; Z90.49 Acquired absence of other specified parts of digestive tract; Z56.0 Unemployment, unspecified; Z79.899 Other long term (current) drug therapy; W17.89XA Other fall from one level to another, initial encounter; Y93.39 Activity, other involving climbing, rappelling and jumping off; Y92.89 Other specified places as the place of occurrence of the external cause; Y99.8 Other external cause status; Y90.9 Presence of alcohol in blood, level not specified
CPT/HCPCS: 73610; 99284

== ENCOUNTER 2019-09-15 23:25 | Emergency (ER) | payer MEDICAID ==
[~2019-09-15] VITALS: Ht 185.4 cm; Wt 106.8 kg
--- NOTE | 2019-09-15 23:30 | NUR ---
JOSUE HENDRICKS AND I ATTEMPTED A 16 COUDE CATHETER W/ UROJET. UPON JOSUE'S INSERTION RESISTANCE WAS MET AND NEGATIVE FEEDBACK. INSERTION WAS dc'D
[2019-09-16] MEDS ORDERED: ondansetron/PF 4mg/2ml inj IV ONE
[2019-09-16] MEDS ORDERED: morphine 4 MG/ML inj SYRINge IV ONE
[2019-09-16] MEDS ORDERED: LORazepam 2 mg/ml vial IV ONE
[2019-09-16 00:27] LABS: CLARITY,URINE CLOUDY (Clear); COLOR,URINE BROWN (Yellow); GLUCOSE, URINE NEGATIVE (Neg); KETONES,URINE 15 mg/dl (Neg); LEUKOCYTE ESTERASE ,URINE MODERATE (Neg); OCCULT BLOOD,URINE LARGE (Neg); PH,URINE 6.5 (4.8-8.0); PROTEIN,URINE >=300 mg/dl (Neg)
--- NOTE | 2019-09-16 00:29 | NUR ---
Medicated as ordered for pain and nausea. Attempted with 14f coude weber to place the weber. Resistance met during insertion. Pt is in excruciating pain. Stopped the attempt at placing the weber cath.
[2019-09-16 00:32] LABS: NITRITES, URINE NEGATIVE (Neg); UA COLLECTION TYPE CLN CATCH MIDSTREAM
[2019-09-16 00:34] LABS: BACTERIA,URINE 1+ /HPF (Neg); MUCUS STRANDS NONE SEEN /LPF (Neg); RBC,URINE 50-100 /HPF (0-2); SQUAMOUS EPITHELIAL CELL,UR MODERATE /LPF (FEW); WBC,URINE TNTC /HPF (0-4)
[2019-09-16] MEDS ORDERED: CefTRIAXone 2gm/D5W 50ml 50 ML IV ONE (00:45)
[2019-09-16] MEDS ORDERED: azithromycin/NS 500mg/250ml 250 ML IV ONE (00:45)
[2019-09-16] MEDS ORDERED: azithromycin 250mg tablet PO ONE (05:25)
[2019-09-16] MEDS ORDERED: CIPR-259 PO (05:29)
[2019-09-16 06:09] VITALS: BP 148/103
== END 2019-09-16 06:57 | disposition home or self-care (01) ==
LOC: ER 23:26
DX: N39.0 Urinary tract infection, site not specified (principal); I10 Essential (primary) hypertension; F31.9 Bipolar disorder, unspecified; F12.90 Cannabis use, unspecified, uncomplicated; Z86.718 Personal history of other venous thrombosis and embolism; Z90.49 Acquired absence of other specified parts of digestive tract; Z98.890 Other specified postprocedural states; Z56.0 Unemployment, unspecified; Z79.2 Long term (current) use of antibiotics; Z79.899 Other long term (current) drug therapy
CPT/HCPCS: 81001; 87077; 87088; 87186; 96365; 96366; 96368; 96375; 99283; J0456; J0696; J2060; J2270; J2405

== ENCOUNTER 2019-09-23 13:48 | Emergency (ER) | payer MEDICAID ==
[~2019-09-23] VITALS: Ht 185.4 cm; Wt 109.1 kg
[~2019-09-23 13:48] MED LIST changes: +CIPR-259 PO
[2019-09-23 14:02] VITALS: BP 172/112
[2019-09-23] MEDS ORDERED: TETanus/Pertussis (Acell)/Diphther VAC/PF (Tdap-Adult) 0.5ml syringe IMVAC ONE (14:15)
== END 2019-09-23 14:52 | disposition home or self-care (01) ==
LOC: ER 13:49
DX: S01.01XA Laceration without foreign body of scalp, initial encounter (principal); I10 Essential (primary) hypertension; F31.9 Bipolar disorder, unspecified; F12.90 Cannabis use, unspecified, uncomplicated; Z90.49 Acquired absence of other specified parts of digestive tract; Z98.890 Other specified postprocedural states; Z86.718 Personal history of other venous thrombosis and embolism; Z79.1 Long term (current) use of non-steroidal anti-inflammatories (NSAID); Z79.899 Other long term (current) drug therapy; W45.8XXA Other foreign body or object entering through skin, initial encounter; Y93.89 Activity, other specified; Y92.89 Other specified places as the place of occurrence of the external cause; Y99.8 Other external cause status
CPT/HCPCS: 12001; 99283

== ENCOUNTER 2019-09-30 08:49 | Emergency (ER) | payer MEDICAID ==
[~2019-09-30] VITALS: Ht 185.4 cm; Wt 112.5 kg
[~2019-09-30 08:49] MED LIST changes: -CIPR-259 PO
[2019-09-30 08:54] VITALS: BP 153/96
== END 2019-09-30 09:34 | disposition home or self-care (01) ==
LOC: ER 08:50
DX: S01.01XD Laceration without foreign body of scalp, subsequent encounter (principal); W45.8XXD Other foreign body or object entering through skin, subsequent encounter
CPT/HCPCS: 99281

== ENCOUNTER 2019-10-18 11:31 | Emergency (ER) | payer MEDICAID ==
[~2019-10-18] VITALS: Ht 185.4 cm; Wt 113.7 kg
[2019-10-18 11:52] VITALS: BP 130/82
[2019-10-18] MEDS ORDERED: ipratropium/albuterol 3ml nebule NEB ONE (13:25)
[2019-10-18] MEDS ORDERED: benzonatate 100mg capsule PO ONE ×2 (13:25→13:50)
--- NOTE | 2019-10-18 13:31 | NUR ---
PATIENT ON GURNEY IN ROOM #14 WITH C/O SOB SINCE LAST NIGHT, COUGH AND SHARP CHEST PAIN IN STERNAL AREA. STATES HE HAS HX PERICARDIAL WINDOW IN 2008.
[2019-10-18 13:45] LABS: BASOPHILS % (AUTO) 0.2 % (0-1); EOSINOPHILS # (AUTO) 0.1 X10'3 (0-0.9); EOSINOPHILS % (AUTO) 0.6 % (0-6); HEMATOCRIT 42.9 % (42.0-52.0); HEMOGLOBIN 14.5 g/dl (14.0-17.9); LYMPHOCYTES # (AUTO) 1.3 X10'3 (1.1-4.8); LYMPHOCYTES % (AUTO) 10.5 % (21-51); MEAN CORPUSCULAR HEMOGLOBIN 28.3 PG (27.0-31.0); MEAN CORPUSCULAR HGB CONC 33.7 g/dL (33.0-36.5); MEAN PLATELET VOLUME 9.6 FL (7.4-10.4); MONOCYTES # (AUTO) 0.8 X10'3 (0-0.9); MONOCYTES % (AUTO) 6.4 % (2-12); NEUTROPHILS # (AUTO) 9.8 X10'3 (1.8-7.7); NEUTROPHILS % (AUTO) 82.3 % (42-75); PLATELET COUNT 178 X10'3 (140-440); RED BLOOD COUNT 5.11 X10'6 (4.70-6.10); RED CELL DISTRIBUTION WIDTH 15.2 % (11.5-14.5); WHITE BLOOD COUNT 11.9 X10'3 (4.5-11.0)
[2019-10-18 13:51] LABS: ALANINE AMINOTRANSFERASE 39 U/L (12-78); ALBUMIN 3.9 G/DL (3.4-5.0); ALKALINE PHOSPHATASE 95 IU/L (46-116); ANION GAP 9 (8-16); ASPARTATE AMINO TRANSFERASE 27 U/L (10-37); BILIRUBIN,TOTAL 0.6 MG/DL (0.1-1.0); BLOOD UREA NITROGEN 10 MG/DL (7-18); BUN/CREATININE RATIO 10.9 (5.4-32.0); CALCIUM 7.9 MG/DL (8.5-10.1); CHLORIDE 107 MMOL/L (99-107); CREATININE 0.92 MG/DL (0.60-1.10); GLUCOSE 97 MG/DL (70-104); POTASSIUM 3.6 MMOL/L (3.5-5.1); SODIUM 143 MMOL/L (135-145); TOTAL CARBON DIOXIDE 27.3 MMOL/L (24-32); TOTAL PROTEIN 7.7 G/DL (6.4-8.2); eGFR > 90 ML/MIN
[2019-10-18] MEDS ORDERED: azithromycin 250mg tablet PO ONE (14:30)
[2019-10-18] MEDS ORDERED: AZIT-72 PO (14:41)
[2019-10-18] MEDS ORDERED: BENZ-16 PO (15:03)
[2019-10-18] MEDS ORDERED: ALB0.5UD IH (15:14)
== END 2019-10-18 15:26 | disposition home or self-care (01) ==
LOC: ER 11:32
DX: J40 Bronchitis, not specified as acute or chronic (principal); J11.1 Influenza due to unidentified influenza virus with other respiratory manifestations; G43.909 Migraine, unspecified, not intractable, without status migrainosus; I10 Essential (primary) hypertension; F12.90 Cannabis use, unspecified, uncomplicated; F17.200 Nicotine dependence, unspecified, uncomplicated; Z90.49 Acquired absence of other specified parts of digestive tract; Z56.0 Unemployment, unspecified; Z86.718 Personal history of other venous thrombosis and embolism; Z98.890 Other specified postprocedural states
CPT/HCPCS: 36415; 71045; 80053; 84484; 85025; 87502; 87503; 93005; 94640; 94760; 99284

== ENCOUNTER 2019-11-13 23:29 | Emergency (ER) | payer MEDICAID ==
[~2019-11-13] VITALS: Ht 185.4 cm; Wt 111.4 kg
--- NOTE | 2019-11-13 23:49 | NUR ---
Provider is with the patient at this time.
[2019-11-13] MEDS ORDERED: ondansetron 4mg rapidly disintigrating tab PO ONE (23:50)
[2019-11-13] MEDS ORDERED: morphine 4 MG/ML inj SYRINge IM ONE (23:50)
[2019-11-14] MEDS ORDERED: opium/belladonna alkaloids No. 15A 30mg rectal suppository RC STA (00:03)
--- NOTE | 2019-11-14 00:04 | NUR ---
ASKED PA FOR B&O SUPPOS. HE OKD IT AND THEN SAID TO GIVE SUPPOS, PERHAPS WE CAN AVOID THE MORPHINE. PRIMARY RN MADE AWARE.
--- NOTE | 2019-11-14 00:29 | NUR ---
Pt medicated as ordered with zofran for nausea and B&O suppository for the bladder spasms and pain. Pt has a new leg bag to collect fresh urine for UA to send to the lab.
[2019-11-14] MEDS ORDERED: OPIU1SUP RC (00:34)
[2019-11-14 01:18] LABS: COLOR,URINE YELLOW (Yellow); GLUCOSE, URINE NEGATIVE (Neg); KETONES,URINE NEGATIVE (Neg); LEUKOCYTE ESTERASE ,URINE TRACE (Neg); NITRITES, URINE NEGATIVE (Neg); OCCULT BLOOD,URINE LARGE (Neg); PROTEIN,URINE 100 mg/dl (Neg); UROBILINOGEN,URINE 0.2 E.U/dL (0.2-1.0)
[2019-11-14 01:19] LABS: CLARITY,URINE SLIGHTLY CLOUDY (Clear); UA COLLECTION TYPE FOLEY CATH
[2019-11-14 01:22] LABS: BACTERIA,URINE FEW /HPF (Neg); RBC,URINE 20-50 /HPF (0-2); SQUAMOUS EPITHELIAL CELL,UR FEW /LPF (FEW); WBC,URINE 0-4 /HPF (0-4)
[2019-11-14] MEDS ORDERED: ketorolac trometh. 30mg/ml inj. IV ONE (01:25)
[2019-11-14] MEDS ORDERED: LORazepam 2 mg/ml vial IV ONE ×2 (01:25→02:20)
[2019-11-14] MEDS ORDERED: HYDR-3965 PO (02:00)
[2019-11-14 03:15] VITALS: BP 137/94
== END 2019-11-14 03:10 | disposition home or self-care (01) ==
LOC: ER 23:29
DX: T83.031A Leakage of indwelling urethral catheter, initial encounter (principal); R10.30 Lower abdominal pain, unspecified; G43.909 Migraine, unspecified, not intractable, without status migrainosus; I10 Essential (primary) hypertension; F31.9 Bipolar disorder, unspecified; F12.90 Cannabis use, unspecified, uncomplicated; F10.99 Alcohol use, unspecified with unspecified alcohol-induced disorder; Z86.718 Personal history of other venous thrombosis and embolism; Z98.890 Other specified postprocedural states; Z56.0 Unemployment, unspecified; Z79.899 Other long term (current) drug therapy; Y90.9 Presence of alcohol in blood, level not specified; Y84.6 Urinary catheterization as the cause of abnormal reaction of the patient, or of later complication, without mention of misadventure at the time of the procedure; Y92.89 Other specified places as the place of occurrence of the external cause
CPT/HCPCS: 81001; 87088; 96374; 96375; 99283; J1885; J2060

== ENCOUNTER 2019-11-18 09:45 | Emergency (ER) | payer MEDICAID ==
[~2019-11-18] VITALS: Ht 185.4 cm; Wt 108.3 kg
[~2019-11-18 09:45] MED LIST changes: +HYDR-3965 PO; +OPIU1SUP RC
[2019-11-18 09:50] VITALS: BP 140/98
[2019-11-18] MEDS ORDERED: triamcinolone acetonide 40mg/ml inj IM ONE (10:10)
[2019-11-18] MEDS ORDERED: PRED50TA PO (10:18)
[2019-11-18] MEDS ORDERED: TRIA15CR61 TOP (10:18)
== END 2019-11-18 10:30 | disposition home or self-care (01) ==
LOC: ER 09:46
DX: L23.7 Allergic contact dermatitis due to plants, except food (principal); G43.909 Migraine, unspecified, not intractable, without status migrainosus; I10 Essential (primary) hypertension; F12.90 Cannabis use, unspecified, uncomplicated; Z86.718 Personal history of other venous thrombosis and embolism; Z90.49 Acquired absence of other specified parts of digestive tract; Z56.0 Unemployment, unspecified; Z98.890 Other specified postprocedural states; Z88.6 Allergy status to analgesic agent; Z79.899 Other long term (current) drug therapy
CPT/HCPCS: 96372; 99283; J3301

== ENCOUNTER 2020-07-26 18:19 | Emergency (ER) | payer MEDICAID ==
[~2020-07-26] VITALS: Ht 185.4 cm; Wt 109.1 kg
[~2020-07-26 18:19] MED LIST changes: -HYDR-3965 PO; -OPIU1SUP RC; +PRED50TA PO
[2020-07-26 18:28] VITALS: BP 176/107
[2020-07-26] MEDS ORDERED: HYDR28CR14 TOP (19:33)
[2020-07-26] MEDS ORDERED: triamcinolone acetonide 40mg/ml inj IM ONE (19:35)
== END 2020-07-26 19:47 | disposition home or self-care (01) ==
LOC: ER 18:20
DX: L23.7 Allergic contact dermatitis due to plants, except food (principal); G43.909 Migraine, unspecified, not intractable, without status migrainosus; I10 Essential (primary) hypertension; F31.9 Bipolar disorder, unspecified; F12.90 Cannabis use, unspecified, uncomplicated; Z87.440 Personal history of urinary (tract) infections; Z86.718 Personal history of other venous thrombosis and embolism; Z90.49 Acquired absence of other specified parts of digestive tract; Z98.890 Other specified postprocedural states; Z72.89 Other problems related to lifestyle; Z56.0 Unemployment, unspecified; Z88.6 Allergy status to analgesic agent; Z79.2 Long term (current) use of antibiotics; Z79.899 Other long term (current) drug therapy
CPT/HCPCS: 96372; 99283; J3301

== ENCOUNTER 2020-09-12 03:00 | Emergency (ER) | payer MEDICAID ==
[~2020-09-12] VITALS: Ht 185.4 cm; Wt 111.0 kg
[2020-09-12] MEDS ORDERED: diphenhydrAMINE 25mg capsule PO ONE (03:40)
[2020-09-12] MEDS ORDERED: clonazePAM 1mg tablet PO ONE (03:40)
[2020-09-12 03:59] VITALS: BP 134/98
== END 2020-09-12 04:01 | disposition home or self-care (01) ==
LOC: ER 03:00
DX: F41.9 Anxiety disorder, unspecified (principal); R06.02 Shortness of breath; G43.909 Migraine, unspecified, not intractable, without status migrainosus; I10 Essential (primary) hypertension; F31.9 Bipolar disorder, unspecified; F12.90 Cannabis use, unspecified, uncomplicated; Z87.440 Personal history of urinary (tract) infections; Z86.718 Personal history of other venous thrombosis and embolism; Z90.49 Acquired absence of other specified parts of digestive tract; Z98.890 Other specified postprocedural states; Z72.89 Other problems related to lifestyle; Z56.0 Unemployment, unspecified; Z88.6 Allergy status to analgesic agent; Z79.2 Long term (current) use of antibiotics; Z79.899 Other long term (current) drug therapy
CPT/HCPCS: 99283; Q0163

== ENCOUNTER 2020-09-28 20:23 | Emergency (ER) | payer MEDICAID ==
[~2020-09-28] VITALS: Ht 185.4 cm; Wt 111.4 kg
[2020-09-28] MEDS ORDERED: LORazepam 2 mg/ml vial IM ONE (22:00)
[2020-09-28] MEDS ORDERED: HYDR-3686 PO ×2 (22:37→22:40)
[2020-09-28 22:48] VITALS: BP 132/96
== END 2020-09-28 22:44 | disposition home or self-care (01) ==
LOC: ER 20:25
DX: F41.9 Anxiety disorder, unspecified (principal); I51.9 Heart disease, unspecified; I10 Essential (primary) hypertension; F32.9 Major depressive disorder, single episode, unspecified; Z87.448 Personal history of other diseases of urinary system; G43.909 Migraine, unspecified, not intractable, without status migrainosus; F12.10 Cannabis abuse, uncomplicated; Z56.0 Unemployment, unspecified; Z88.6 Allergy status to analgesic agent; Z79.899 Other long term (current) drug therapy
CPT/HCPCS: 96372; 99283; J2060

== ENCOUNTER 2020-12-08 18:30 | Emergency (ER) | payer MEDICAID ==
[~2020-12-08] VITALS: Ht 185.4 cm; Wt 117.5 kg
[2020-12-08 18:43] VITALS: BP 149/98
[2020-12-08] MEDS ORDERED: TETanus/Pertussis (Acell)/Diphther VAC/PF (Tdap-Adult) 0.5ml syringe IMVAC ONE (19:35)
== END 2020-12-08 20:01 | disposition home or self-care (01) ==
LOC: ER 18:31
DX: S01.01XA Laceration without foreign body of scalp, initial encounter (principal); G43.909 Migraine, unspecified, not intractable, without status migrainosus; I10 Essential (primary) hypertension; F31.9 Bipolar disorder, unspecified; F17.200 Nicotine dependence, unspecified, uncomplicated; Z86.718 Personal history of other venous thrombosis and embolism; Z90.49 Acquired absence of other specified parts of digestive tract; Z72.89 Other problems related to lifestyle; Z56.0 Unemployment, unspecified; Z88.6 Allergy status to analgesic agent; Z79.899 Other long term (current) drug therapy; W22.8XXA Striking against or struck by other objects, initial encounter; Y93.89 Activity, other specified; Y92.89 Other specified places as the place of occurrence of the external cause; Y99.8 Other external cause status
CPT/HCPCS: 90471; 90715; 99283

== ENCOUNTER 2021-01-04 12:43 | Emergency (ER) | payer MEDICAID ==
[~2021-01-04] VITALS: Ht 185.4 cm; Wt 111.4 kg
[2021-01-04 12:48] VITALS: BP 156/104
[2021-01-04] MEDS ORDERED: triamcinolone acetonide 40mg/ml inj IM ONE (13:15)
== END 2021-01-04 13:40 | disposition home or self-care (01) ==
LOC: ER 12:43
DX: L23.7 Allergic contact dermatitis due to plants, except food (principal); G43.909 Migraine, unspecified, not intractable, without status migrainosus; I10 Essential (primary) hypertension; F31.9 Bipolar disorder, unspecified; Z86.718 Personal history of other venous thrombosis and embolism; Z90.49 Acquired absence of other specified parts of digestive tract; Z72.89 Other problems related to lifestyle; Z56.0 Unemployment, unspecified; Z88.6 Allergy status to analgesic agent; Z79.899 Other long term (current) drug therapy
CPT/HCPCS: 96372; 99283; J3301

== ENCOUNTER 2021-01-08 13:08 | Emergency (ER) | payer MEDICAID ==
[~2021-01-08] VITALS: Ht 185.4 cm; Wt 117.5 kg
[2021-01-08 13:32] VITALS: BP 141/100
[2021-01-08] MEDS ORDERED: PRED10TA PO (14:32)
[2021-01-08] MEDS ORDERED: FAMO10TA41 PO (14:32)
== END 2021-01-08 14:44 | disposition home or self-care (01) ==
LOC: ER 13:09
DX: L23.7 Allergic contact dermatitis due to plants, except food (principal); G43.909 Migraine, unspecified, not intractable, without status migrainosus; I10 Essential (primary) hypertension; F31.9 Bipolar disorder, unspecified; Z86.718 Personal history of other venous thrombosis and embolism; Z90.49 Acquired absence of other specified parts of digestive tract; Z72.89 Other problems related to lifestyle; Z56.0 Unemployment, unspecified; Z88.6 Allergy status to analgesic agent; Z79.899 Other long term (current) drug therapy
CPT/HCPCS: 99283

== ENCOUNTER 2021-01-11 13:38 | Emergency (ER) | payer MEDICAID ==
[~2021-01-11] VITALS: Ht 185.4 cm; Wt 109.1 kg
[~2021-01-11 13:38] MED LIST changes: +FAMO10TA41 PO; +PRED10TA PO
[2021-01-11 14:07] VITALS: BP 144/97
== END 2021-01-11 16:05 | disposition home or self-care (01) ==
LOC: ER 13:38
DX: L23.7 Allergic contact dermatitis due to plants, except food (principal); G43.909 Migraine, unspecified, not intractable, without status migrainosus; I10 Essential (primary) hypertension; F31.9 Bipolar disorder, unspecified; Z86.718 Personal history of other venous thrombosis and embolism; Z90.49 Acquired absence of other specified parts of digestive tract; Z72.89 Other problems related to lifestyle; Z56.0 Unemployment, unspecified; Z88.6 Allergy status to analgesic agent; Z79.899 Other long term (current) drug therapy
CPT/HCPCS: 99281

== ENCOUNTER 2021-01-19 12:27 | Emergency (ER) | payer MEDICAID ==
[~2021-01-19] VITALS: Ht 185.4 cm; Wt 111.4 kg
[2021-01-19] MEDS ORDERED: ketorolac tromethamine 15mg/ml inj. IM ONE (14:05)
[2021-01-19] MEDS ORDERED: PRED20TA PO (14:11)
[2021-01-19] MEDS ORDERED: BETA15CR4 TOP (14:11)
[2021-01-19] MEDS ORDERED: HYDR-3686 PO (14:11)
[2021-01-19] MEDS ORDERED: predniSONE 20 mg tablet PO ONE (14:30)
[2021-01-19 14:40] VITALS: BP 125/80
== END 2021-01-19 14:42 | disposition home or self-care (01) ==
LOC: ER 12:27
DX: L23.9 Allergic contact dermatitis, unspecified cause (principal); G43.909 Migraine, unspecified, not intractable, without status migrainosus; I10 Essential (primary) hypertension; F31.9 Bipolar disorder, unspecified; Z86.718 Personal history of other venous thrombosis and embolism; Z90.49 Acquired absence of other specified parts of digestive tract; Z72.89 Other problems related to lifestyle; Z56.0 Unemployment, unspecified; Z88.8 Allergy status to other drugs, medicaments and biological substances; Z88.6 Allergy status to analgesic agent; Z79.899 Other long term (current) drug therapy
CPT/HCPCS: 96372; 99283; J1885; J7512

== ENCOUNTER 2021-02-09 13:44 | Emergency (ER) | payer MEDICAID ==
[~2021-02-09] VITALS: Ht 185.4 cm; Wt 118.0 kg
[~2021-02-09 13:44] MED LIST changes: +BETA15CR4 TOP; +PRED20TA PO
[2021-02-09] MEDS ORDERED: triamcinolone acetonide 40mg/ml inj IM ONE (16:20)
[2021-02-09 16:29] VITALS: BP 149/98
[2021-02-09] MEDS ORDERED: KEN0.1O TP (16:38)
== END 2021-02-09 16:45 | disposition home or self-care (01) ==
LOC: ER 13:46
DX: L23.7 Allergic contact dermatitis due to plants, except food (principal); G43.909 Migraine, unspecified, not intractable, without status migrainosus; I10 Essential (primary) hypertension; F31.9 Bipolar disorder, unspecified; Z86.718 Personal history of other venous thrombosis and embolism; Z90.49 Acquired absence of other specified parts of digestive tract; Z56.0 Unemployment, unspecified; Z88.6 Allergy status to analgesic agent; Z79.899 Other long term (current) drug therapy
CPT/HCPCS: 96372; 99283; J3301

== ENCOUNTER 2021-02-26 19:32 | Emergency (ER) | payer MEDICAID ==
[~2021-02-26] VITALS: Ht 185.4 cm; Wt 111.4 kg
[~2021-02-26 19:32] MED LIST changes: -PRED20TA PO
[2021-02-26 19:56] VITALS: BP 142/105
[2021-02-26] MEDS ORDERED: triamcinolone acetonide 40mg/ml inj IM ONE (21:40)
[2021-02-26] MEDS ORDERED: PRED20TA PO (21:41)
== END 2021-02-26 21:57 | disposition home or self-care (01) ==
LOC: ER 19:33
DX: L23.9 Allergic contact dermatitis, unspecified cause (principal); G43.909 Migraine, unspecified, not intractable, without status migrainosus; I10 Essential (primary) hypertension; F32.9 Major depressive disorder, single episode, unspecified; Z87.448 Personal history of other diseases of urinary system; Z90.49 Acquired absence of other specified parts of digestive tract; Z88.6 Allergy status to analgesic agent; Z56.0 Unemployment, unspecified
CPT/HCPCS: 96372; 99283; J3301

== ENCOUNTER 2021-03-10 09:38 | Emergency (ER) | payer MEDICAID ==
[~2021-03-10] VITALS: Ht 185.4 cm; Wt 118.6 kg
[2021-03-10 09:44] VITALS: BP 147/96
[2021-03-10] MEDS ORDERED: PRED10TA23 PO (10:15)
== END 2021-03-10 10:31 | disposition home or self-care (01) ==
LOC: ER 09:39
DX: L23.7 Allergic contact dermatitis due to plants, except food (principal); G43.909 Migraine, unspecified, not intractable, without status migrainosus; I10 Essential (primary) hypertension; Z86.718 Personal history of other venous thrombosis and embolism; Z87.440 Personal history of urinary (tract) infections; Z88.8 Allergy status to other drugs, medicaments and biological substances; Z79.899 Other long term (current) drug therapy; Z72.89 Other problems related to lifestyle; Z56.0 Unemployment, unspecified; Z90.49 Acquired absence of other specified parts of digestive tract; Z98.890 Other specified postprocedural states
CPT/HCPCS: 99283

== ENCOUNTER 2021-04-10 17:36 | Emergency (ER) | payer MEDICAID ==
[~2021-04-10] VITALS: Ht 185.4 cm; Wt 107.8 kg
[~2021-04-10 17:36] MED LIST changes: +PRED10TA23 PO
[2021-04-10 17:46] VITALS: BP 147/97
[2021-04-10] MEDS ORDERED: CEPH250T PO (18:22)
[2021-04-10] MEDS ORDERED: SULF1TAB49 PO (18:22)
== END 2021-04-10 18:56 | disposition home or self-care (01) ==
LOC: ER 17:37
DX: S90.562A Insect bite (nonvenomous), left ankle, initial encounter (principal); L03.116 Cellulitis of left lower limb; G43.909 Migraine, unspecified, not intractable, without status migrainosus; I10 Essential (primary) hypertension; F31.9 Bipolar disorder, unspecified; Z86.718 Personal history of other venous thrombosis and embolism; Z72.89 Other problems related to lifestyle; Z56.0 Unemployment, unspecified; Z90.49 Acquired absence of other specified parts of digestive tract; Z98.890 Other specified postprocedural states; Z88.6 Allergy status to analgesic agent; Z79.899 Other long term (current) drug therapy; W57.XXXA Bitten or stung by nonvenomous insect and other nonvenomous arthropods, initial encounter; Y93.89 Activity, other specified; Y92.89 Other specified places as the place of occurrence of the external cause; Y99.8 Other external cause status
CPT/HCPCS: 99283

== ENCOUNTER 2021-04-12 14:21 | Emergency (ER) | payer MEDICAID ==
[~2021-04-12] VITALS: Ht 185.4 cm; Wt 112.8 kg
[~2021-04-12 14:21] MED LIST changes: +CEPH250T PO; -PRED10TA23 PO; +SULF1TAB49 PO
[2021-04-12 14:30] VITALS: BP 158/101
[2021-04-12] MEDS ORDERED: PRED20TA PO (16:07)
[2021-04-12] MEDS ORDERED: dexamethasone 4mg tablet PO ONE (16:10)
[2021-04-12] MEDS ORDERED: dexamethasone sod phosphate 10mg/ml inj PO ONE (16:15)
== END 2021-04-12 16:26 | disposition home or self-care (01) ==
LOC: ER 14:22
DX: L23.7 Allergic contact dermatitis due to plants, except food (principal); G43.909 Migraine, unspecified, not intractable, without status migrainosus; I10 Essential (primary) hypertension; F31.9 Bipolar disorder, unspecified; Z86.718 Personal history of other venous thrombosis and embolism; Z72.89 Other problems related to lifestyle; Z56.0 Unemployment, unspecified; Z90.49 Acquired absence of other specified parts of digestive tract; Z98.890 Other specified postprocedural states; Z88.6 Allergy status to analgesic agent; Z79.899 Other long term (current) drug therapy
CPT/HCPCS: 99283; J1100

== ENCOUNTER 2021-06-08 16:15 | Emergency (ER) | payer MEDICAID ==
[~2021-06-08] VITALS: Ht 185.4 cm; Wt 126.6 kg
[~2021-06-08 16:15] MED LIST changes: -CEPH250T PO; -SULF1TAB49 PO
[2021-06-08 16:41] VITALS: BP 147/94
[2021-06-08 17:12] LABS: BASOPHILS % (AUTO) 0.2 % (0-1); EOSINOPHILS # (AUTO) 0.2 X10'3 (0-0.9); EOSINOPHILS % (AUTO) 1.5 % (0-6); HEMATOCRIT 39.9 % (42.0-52.0); HEMOGLOBIN 13.2 g/dl (14.0-17.9); LYMPHOCYTES # (AUTO) 1.8 X10'3 (1.1-4.8); LYMPHOCYTES % (AUTO) 15.3 % (21-51); MEAN CORPUSCULAR HEMOGLOBIN 28.3 PG (27.0-31.0); MEAN CORPUSCULAR HGB CONC 33.1 g/dL (33.0-36.5); MEAN CORPUSCULAR VOLUME 85.5 FL (78-98); MEAN PLATELET VOLUME 9.2 FL (7.4-10.4); MONOCYTES # (AUTO) 1.3 X10'3 (0-0.9); MONOCYTES % (AUTO) 11.6 % (2-12); NEUTROPHILS # (AUTO) 8.2 X10'3 (1.8-7.7); NEUTROPHILS % (AUTO) 71.4 % (42-75); PLATELET COUNT 179 X10'3 (140-440); RED BLOOD COUNT 4.66 X10'6 (4.70-6.10); RED CELL DISTRIBUTION WIDTH 14.6 % (11.5-14.5); WHITE BLOOD COUNT 11.5 X10'3 (4.5-11.0)
[2021-06-08 17:30] LABS: ALANINE AMINOTRANSFERASE 51 U/L (12-78); ALBUMIN 3.7 G/DL (3.4-5.0); ALKALINE PHOSPHATASE 67 IU/L (46-116); ANION GAP 11 (8-16); ASPARTATE AMINO TRANSFERASE 23 U/L (10-37); BILIRUBIN,TOTAL 0.4 MG/DL (0.1-1.0); BLOOD UREA NITROGEN 13 MG/DL (7-18); BUN/CREATININE RATIO 12.3 (5.4-32.0); CALCIUM 7.5 MG/DL (8.5-10.1); CHLORIDE 108 MMOL/L (99-107); CREATININE 1.06 MG/DL (0.60-1.10); GLUCOSE 91 MG/DL (70-104); POTASSIUM 3.4 MMOL/L (3.5-5.1); SODIUM 147 MMOL/L (135-145); TOTAL CARBON DIOXIDE 28.5 MMOL/L (24-32); TOTAL PROTEIN 7.5 G/DL (6.4-8.2); eGFR 77 ML/MIN
[2021-06-09] MEDS ORDERED: HYDR-3965 PO (15:53)
== END 2021-06-09 01:00 | disposition left against medical advice (07) ==
LOC: ER 16:16
DX: R07.89 Other chest pain (principal); Z53.21 Procedure and treatment not carried out due to patient leaving prior to being seen by health care provider
CPT/HCPCS: 36415; 71045; 80053; 83880; 84484; 85025; 93005

== ENCOUNTER 2021-06-09 10:09 | Emergency (ER) | payer MEDICAID ==
[~2021-06-09] VITALS: Ht 185.4 cm; Wt 126.0 kg
[2021-06-09 11:42] VITALS: BP 151/94
[2021-06-09 12:19] LABS: BASOPHILS % (AUTO) 0.1 % (0-1); EOSINOPHILS # (AUTO) 0.1 X10'3 (0-0.9); EOSINOPHILS % (AUTO) 1.1 % (0-6); HEMATOCRIT 41.1 % (42.0-52.0); HEMOGLOBIN 13.6 g/dl (14.0-17.9); LYMPHOCYTES # (AUTO) 1.6 X10'3 (1.1-4.8); LYMPHOCYTES % (AUTO) 13.5 % (21-51); MEAN CORPUSCULAR HEMOGLOBIN 28.2 PG (27.0-31.0); MEAN CORPUSCULAR VOLUME 85.3 FL (78-98); MEAN PLATELET VOLUME 9.6 FL (7.4-10.4); MONOCYTES # (AUTO) 1.2 X10'3 (0-0.9); MONOCYTES % (AUTO) 9.9 % (2-12); NEUTROPHILS % (AUTO) 75.4 % (42-75); PLATELET COUNT 195 X10'3 (140-440); RED BLOOD COUNT 4.82 X10'6 (4.70-6.10); RED CELL DISTRIBUTION WIDTH 14.9 % (11.5-14.5)
[2021-06-09 12:29] LABS: ALANINE AMINOTRANSFERASE 58 U/L (12-78); ALBUMIN 3.8 G/DL (3.4-5.0); ALBUMIN/GLOBULIN RATIO 0.9 (1.1-1.5); ALKALINE PHOSPHATASE 71 IU/L (46-116); ANION GAP 10 (8-16); ASPARTATE AMINO TRANSFERASE 24 U/L (10-37); BILIRUBIN,TOTAL 0.6 MG/DL (0.1-1.0); BLOOD UREA NITROGEN 12 MG/DL (7-18); BUN/CREATININE RATIO 13.3 (5.4-32.0); CALCIUM 7.5 MG/DL (8.5-10.1); CHLORIDE 106 MMOL/L (99-107); GLUCOSE 98 MG/DL (70-104); POTASSIUM 3.4 MMOL/L (3.5-5.1); SODIUM 145 MMOL/L (135-145); TOTAL CARBON DIOXIDE 28.7 MMOL/L (24-32); eGFR > 90 ML/MIN
[2021-06-09] MEDS ORDERED: ketorolac tromethamine 15mg/ml inj. IM ONE (14:10)
[2021-06-09] MEDS ORDERED: HYDR-3965 PO (15:53)
== END 2021-06-09 16:05 | disposition home or self-care (01) ==
LOC: ER 10:10
DX: R07.89 Other chest pain (principal); G43.909 Migraine, unspecified, not intractable, without status migrainosus; I10 Essential (primary) hypertension; Z87.440 Personal history of urinary (tract) infections; Z86.718 Personal history of other venous thrombosis and embolism; Z90.49 Acquired absence of other specified parts of digestive tract; Z72.89 Other problems related to lifestyle; Z56.0 Unemployment, unspecified; Z79.899 Other long term (current) drug therapy; Z88.6 Allergy status to analgesic agent; Z79.2 Long term (current) use of antibiotics
CPT/HCPCS: 36415; 71045; 80053; 84484; 85025; 93005; 99285

== ENCOUNTER 2021-06-26 20:15 | Emergency (ER) | payer MEDICAID ==
[~2021-06-26] VITALS: Ht 185.4 cm; Wt 118.2 kg
[~2021-06-26 20:15] MED LIST changes: +HYDR-3965 PO
[2021-06-26 20:20] VITALS: BP 156/100
[2021-06-26] MEDS ORDERED: HYDR-3972 PO (20:26)
[2021-06-26] MEDS ORDERED: ONDA4TAB6 PO (20:26)
[2021-06-26] MEDS ORDERED: ondansetron 4mg rapidly disintigrating tab PO ONE (20:30)
== END 2021-06-26 20:38 | disposition home or self-care (01) ==
LOC: ER 20:16
DX: S09.90XA Unspecified injury of head, initial encounter (principal); F07.81 Postconcussional syndrome; R11.2 Nausea with vomiting, unspecified; R42 Dizziness and giddiness; G43.909 Migraine, unspecified, not intractable, without status migrainosus; I10 Essential (primary) hypertension; F31.9 Bipolar disorder, unspecified; F17.200 Nicotine dependence, unspecified, uncomplicated; F12.90 Cannabis use, unspecified, uncomplicated; Z87.440 Personal history of urinary (tract) infections; Z86.718 Personal history of other venous thrombosis and embolism; Z90.49 Acquired absence of other specified parts of digestive tract; Z98.890 Other specified postprocedural states; Z72.89 Other problems related to lifestyle; Z88.6 Allergy status to analgesic agent; Z79.2 Long term (current) use of antibiotics; Z79.899 Other long term (current) drug therapy; X58.XXXA Exposure to other specified factors, initial encounter; Y93.89 Activity, other specified; Y92.89 Other specified places as the place of occurrence of the external cause; Y99.8 Other external cause status
CPT/HCPCS: 99283

== ENCOUNTER 2021-07-31 11:38 | Emergency (ER) | payer MEDICAID ==
[~2021-07-31] VITALS: Ht 185.4 cm; Wt 126.6 kg
[~2021-07-31 11:38] MED LIST changes: -HYDR-3965 PO; +ONDA4TAB6 PO
[2021-07-31 11:53] VITALS: BP 148/89
[2021-07-31] MEDS ORDERED: morphine 4 MG/ML inj SYRINge IV ONE (13:20)
[2021-07-31] MEDS ORDERED: ondansetron/PF 4mg/2ml inj IV ONE (13:20)
== END 2021-07-31 16:54 | disposition home or self-care (01) ==
LOC: ER 11:39
DX: S83.411A Sprain of medial collateral ligament of right knee, initial encounter (principal); M25.561 Pain in right knee; G43.909 Migraine, unspecified, not intractable, without status migrainosus; I10 Essential (primary) hypertension; F31.9 Bipolar disorder, unspecified; F17.200 Nicotine dependence, unspecified, uncomplicated; F12.90 Cannabis use, unspecified, uncomplicated; Z87.440 Personal history of urinary (tract) infections; Z86.718 Personal history of other venous thrombosis and embolism; Z90.49 Acquired absence of other specified parts of digestive tract; Z98.890 Other specified postprocedural states; Z72.89 Other problems related to lifestyle; Z88.6 Allergy status to analgesic agent; Z79.2 Long term (current) use of antibiotics; Z79.899 Other long term (current) drug therapy; X58.XXXA Exposure to other specified factors, initial encounter; Y93.89 Activity, other specified; Y92.89 Other specified places as the place of occurrence of the external cause; Y99.8 Other external cause status
CPT/HCPCS: 73564; 73721; 99284

== ENCOUNTER 2021-08-24 10:15 | Emergency (ER) | payer MEDICAID ==
[~2021-08-24] VITALS: Ht 185.4 cm; Wt 128.6 kg
[2021-08-24 10:27] VITALS: BP 168/108
[2021-08-24] MEDS ORDERED: PENI500T2 PO (10:49)
[2021-08-24] MEDS ORDERED: IBUP-1986 PO (10:49)
[2021-08-24] MEDS ORDERED: CHLO118M PO (10:50)
== END 2021-08-24 10:58 | disposition home or self-care (01) ==
LOC: ER 10:16
DX: K05.10 Chronic gingivitis, plaque induced (principal); K08.89 Other specified disorders of teeth and supporting structures; G43.909 Migraine, unspecified, not intractable, without status migrainosus; I10 Essential (primary) hypertension; F31.9 Bipolar disorder, unspecified; F12.90 Cannabis use, unspecified, uncomplicated; Z87.440 Personal history of urinary (tract) infections; Z86.718 Personal history of other venous thrombosis and embolism; Z90.49 Acquired absence of other specified parts of digestive tract; Z98.890 Other specified postprocedural states; Z72.89 Other problems related to lifestyle; Z88.6 Allergy status to analgesic agent; Z79.2 Long term (current) use of antibiotics; Z79.899 Other long term (current) drug therapy
CPT/HCPCS: 99283

== ENCOUNTER 2023-02-15 19:42 | Emergency (ER) | payer MEDICAID ==
[~2023-02-15] VITALS: Ht 185.4 cm; Wt 129.6 kg
[~2023-02-15 19:42] MED LIST changes: +CHLO118M PO
[2023-02-15 19:47] VITALS: BP 199/135
== END 2023-02-16 01:38 | disposition left against medical advice (07) ==
LOC: ER 19:43
DX: R33.9 Retention of urine, unspecified (principal); Z53.21 Procedure and treatment not carried out due to patient leaving prior to being seen by health care provider

== ENCOUNTER 2024-03-09 11:11 | Inpatient (IN) | payer MEDICAID ==
[~2024-03-09] VITALS: Ht 185.4 cm; Wt 109.2 kg
[~2024-03-09 11:11] MED LIST changes: +CLIN-214 PO; -CLIN150C8 PO
[2024-03-09 11:54] LABS: BASOPHILS % (AUTO) 0.1 % (0-1); EOSINOPHILS % (AUTO) 0 % (0-6); HEMATOCRIT 43.3 % (42.0-52.0); HEMOGLOBIN 14.3 g/dl (14.0-17.9); LYMPHOCYTES # (AUTO) 0.5 X10'3 (1.1-4.8); LYMPHOCYTES % (AUTO) 2.3 % (21-51); MEAN CORPUSCULAR HEMOGLOBIN 27.6 PG (27.0-31.0); MEAN CORPUSCULAR VOLUME 83.6 FL (78-98); MONOCYTES # (AUTO) 1.1 X10'3 (0-0.9); MONOCYTES % (AUTO) 5.1 % (2-12); NEUTROPHILS # (AUTO) 20.7 X10'3 (1.8-7.7); NEUTROPHILS % (AUTO) 92.5 % (42-75); PLATELET COUNT 109 X10'3 (140-440); RED BLOOD COUNT 5.18 X10'6 (4.70-6.10); RED CELL DISTRIBUTION WIDTH 15.3 % (11.5-14.5); WHITE BLOOD COUNT 22.3 X10'3 (4.5-11.0)
[2024-03-09 12:04] LABS: ALANINE AMINOTRANSFERASE 174 U/L (12-78); ALBUMIN 3.1 G/DL (3.4-5.0); ALBUMIN/GLOBULIN RATIO 0.7 (1.1-1.5); ALKALINE PHOSPHATASE 189 IU/L (46-116); AMYLASE 21 U/L (25-115); ANION GAP 14 (8-16); ASPARTATE AMINO TRANSFERASE 34 U/L (10-37); BLOOD UREA NITROGEN 32 MG/DL (7-18); CALCIUM 7.8 MG/DL (8.5-10.1); CHLORIDE 97 MMOL/L (99-107); CREATININE 2.46 MG/DL (0.60-1.10); GLUCOSE 147 MG/DL (70-104); LIPASE 17 U/L (16-77); SODIUM 135 MMOL/L (135-145); TOTAL CARBON DIOXIDE 23.9 MMOL/L (24-32); TOTAL PROTEIN 7.7 G/DL (6.4-8.2); eCRCL 43 ML/MIN; eGFR 29 ML/MIN
[2024-03-09 12:08] LABS: POTASSIUM 3.4 MMOL/L (3.5-5.1)
[2024-03-09 12:13] LABS: TOTAL CELLS COUNTED 100
[2024-03-09 12:14] LABS: PLATELET ESTIMATE DECREASED
[2024-03-09] MEDS: ondansetron/PF 4mg/2ml inj IV ONE (12:51)
[2024-03-09] MEDS: HYDROmorphone 1 mg/ml syringe IV ONE (12:52)
[2024-03-09] MEDS: ringers solution, lacted 1,000 ML IV ONE (13:02)
[2024-03-09] MEDS: piperacillin/tazo 4.5gm/100ml 100 ML IV STA (13:24)
[2024-03-09] MEDS: ringers solution, lactated 500ml IV solution IV ONE ×2 (13:52→13:58)
[2024-03-09] MEDS: HYDROmorphone inj. 0.5 MG/0.5 ML DISP.SYRIN IV PRN (14:37)
[2024-03-09] MEDS ORDERED: ondansetron/PF 4mg/2ml inj IV PRN (16:40)
[2024-03-09] MEDS ORDERED: HYDROcodone/acetaminophen 5mg/325mg tablet PO PRN (16:40)
[2024-03-09] MEDS ORDERED: magnesium Cl slow-release 64mg tablet PO PRN (16:40)
[2024-03-09] MEDS ORDERED: potassium Cl 20 mEq SR tablet PO PRN (16:40)
[2024-03-09] MEDS ORDERED: potassium Cl 40MEQ/1/2NS 520ml 520 ML IV PRN (16:40)
[2024-03-09] MEDS ORDERED: magnesium 4gm in 100ml NS 100 ML IV PRN (16:40)
[2024-03-09] MEDS ORDERED: acetaminophen 325mg tablet PO PRN (16:40)
[2024-03-09] MEDS ORDERED: magnesium 2GM in 50ml NS 50 ML IV PRN (16:40)
[2024-03-09] MEDS ORDERED: mag hydrox/Alum hydrox/simeth 30ml oral suspension PO PRN (16:40)
[2024-03-09] MEDS: normal saline 1000ml 1,000 ML IV SCH (16:51)
[2024-03-09 18:19] LABS: BILIRUBIN,URINE MODERATE (Neg); CLARITY,URINE CLOUDY (Clear); COLOR,URINE YELLOW (Yellow); GLUCOSE, URINE NEGATIVE (Neg); KETONES,URINE TRACE mg/dl (Neg); LEUKOCYTE ESTERASE ,URINE MODERATE (Neg); NITRITES, URINE POSITIVE (Neg); OCCULT BLOOD,URINE MODERATE (Neg); PH,URINE 5.5 (4.8-8.0); PROTEIN,URINE 100 mg/dl (Neg); UROBILINOGEN,URINE 0.2 E.U/dL (0.2-1.0)
[2024-03-09 18:31] LABS: UA COLLECTION TYPE CLN CATCH MIDSTREAM
[2024-03-09 18:33] LABS: BACTERIA,URINE 4+ /HPF (Neg); SQUAMOUS EPITHELIAL CELL,UR MANY /LPF (FEW)
[2024-03-09 18:36] LABS: COARSE GRANULAR CAST 0-3 /LPF (NEGATIVE); HYALINE CASTS 0-3 /LPF (NEGATIVE)
[2024-03-09 18:37] LABS: WBC,URINE TNTC /HPF (0-4)
[2024-03-09] MEDS: K and/or MAG REPLACEMENT MC SCH (20:00)
[2024-03-09] MEDS: morphine 2 MG/ML inj. syringe IV PRN (20:20)
[2024-03-09] MEDS: CefTRIAXone/D5W-Rocephin 1gm 50 ML IV SCH (20:22)
[2024-03-09] MEDS: potassium Cl 20 mEq SR tablet PO PRN (20:23)
[2024-03-09] MEDS: phenazopyridine 100mg tablet PO ONE (21:35)
[2024-03-09] MEDS: LidoCAINE 2% Topical Jelly 11mL syringe (UROJET) TOP ONE (22:09)
[2024-03-10] MEDS: HYDROcodone/acetaminophen 10/325mg tab PO PRN (01:18)
[2024-03-10 01:54] LABS: CREATINE KINASE 42 U/L (39-308)
[2024-03-10 07:51] LABS: BASOPHILS % (AUTO) 0.1 % (0-1); EOSINOPHILS # (AUTO) 0.1 X10'3 (0-0.9); EOSINOPHILS % (AUTO) 0.5 % (0-6); HEMATOCRIT 37.6 % (42.0-52.0); HEMOGLOBIN 12.6 g/dl (14.0-17.9); LYMPHOCYTES # (AUTO) 0.8 X10'3 (1.1-4.8); LYMPHOCYTES % (AUTO) 4.3 % (21-51); MEAN CORPUSCULAR HEMOGLOBIN 27.6 PG (27.0-31.0); MEAN CORPUSCULAR HGB CONC 33.4 g/dL (33.0-36.5); MEAN CORPUSCULAR VOLUME 82.5 FL (78-98); MEAN PLATELET VOLUME 10.2 FL (7.4-10.4); MONOCYTES # (AUTO) 1.5 X10'3 (0-0.9); NEUTROPHILS % (AUTO) 87.1 % (42-75); PLATELET COUNT 70 X10'3 (140-440); RED BLOOD COUNT 4.55 X10'6 (4.70-6.10); RED CELL DISTRIBUTION WIDTH 15.7 % (11.5-14.5); WHITE BLOOD COUNT 18.3 X10'3 (4.5-11.0)
[2024-03-10 08:19] LABS: ALBUMIN 2.4 G/DL (3.4-5.0); ANION GAP 9 (8-16); BLOOD UREA NITROGEN 40 MG/DL (7-18); BUN/CREATININE RATIO 19.6 (10.0-20.0); CALCIUM 7.6 MG/DL (8.5-10.1); CHLORIDE 105 MMOL/L (99-107); CREATININE 2.04 MG/DL (0.60-1.10); GLUCOSE 101 MG/DL (70-104); MAGNESIUM 1.7 MG/DL (1.5-2.4); PHOSPHORUS 3.4 MG/DL (2.3-4.5); POTASSIUM 3.7 MMOL/L (3.5-5.1); SODIUM 139 MMOL/L (135-145); TOTAL CARBON DIOXIDE 24.7 MMOL/L (24-32); eCRCL 52 ML/MIN; eGFR 36 ML/MIN
[2024-03-10 11:46] VITALS: BP 134/92; PULSE 87; TEMP 97.8; O2SAT 98
[2024-03-10 17:40] VITALS: BP 121/81; PULSE 84; RESP 18; TEMP 98.8; O2SAT 95
[2024-03-10 18:00] VITALS: BP 122/82; PULSE 96; RESP 18; TEMP 97.5; O2SAT 95
[2024-03-10 19:00] VITALS: RESP 18
[2024-03-10] MEDS ORDERED: AMLO10TA13 PO (19:48)
[2024-03-10] MEDS ORDERED: LISI10TA27 PO (19:48)
[2024-03-10] MEDS ORDERED: CARV6.253 PO (19:48)
[2024-03-10] MEDS: carvedilol 6.25mg tablet PO SCH (21:34)
[2024-03-10 21:35] VITALS: BP 122/85
[2024-03-11 06:00] VITALS: BP 122/78; PULSE 81; RESP 28; TEMP 98.2; O2SAT 99
[2024-03-11 07:14] LABS: ALBUMIN 2.2 G/DL (3.4-5.0); ANION GAP 8 (8-16); BLOOD UREA NITROGEN 30 MG/DL (7-18); CALCIUM 7.7 MG/DL (8.5-10.1); CHLORIDE 105 MMOL/L (99-107); CREATININE 1.11 MG/DL (0.60-1.10); GLUCOSE 90 MG/DL (70-104); PHOSPHORUS 3.1 MG/DL (2.3-4.5); POTASSIUM 3.6 MMOL/L (3.5-5.1); SODIUM 138 MMOL/L (135-145); TOTAL CARBON DIOXIDE 24.7 MMOL/L (24-32); eCRCL 96 ML/MIN; eGFR 72 ML/MIN
[2024-03-11 07:46] LABS: BASOPHILS % (AUTO) 0.2 % (0-1); EOSINOPHILS # (AUTO) 0.1 X10'3 (0-0.9); EOSINOPHILS % (AUTO) 0.6 % (0-6); HEMATOCRIT 34.2 % (42.0-52.0); HEMOGLOBIN 11.5 g/dl (14.0-17.9); LYMPHOCYTES # (AUTO) 0.9 X10'3 (1.1-4.8); LYMPHOCYTES % (AUTO) 10.1 % (21-51); MEAN CORPUSCULAR HEMOGLOBIN 27.7 PG (27.0-31.0); MEAN CORPUSCULAR HGB CONC 33.6 g/dL (33.0-36.5); MEAN CORPUSCULAR VOLUME 82.3 FL (78-98); MEAN PLATELET VOLUME 10.4 FL (7.4-10.4); MONOCYTES # (AUTO) 0.9 X10'3 (0-0.9); MONOCYTES % (AUTO) 10.4 % (2-12); NEUTROPHILS # (AUTO) 7.2 X10'3 (1.8-7.7); NEUTROPHILS % (AUTO) 78.7 % (42-75); PLATELET COUNT 58 X10'3 (140-440); RED BLOOD COUNT 4.16 X10'6 (4.70-6.10); RED CELL DISTRIBUTION WIDTH 15.3 % (11.5-14.5); WHITE BLOOD COUNT 9.1 X10'3 (4.5-11.0)
[2024-03-11] MEDS ORDERED: lisinopril 5mg tablet PO SCH (08:00)
[2024-03-11] MEDS: amLODIPine 5mg tablet PO SCH (08:51)
[2024-03-11] MEDS: lisinopril 10 MG tablet PO SCH (08:51)
[2024-03-11] MEDS: acetaminophen 325mg tablet PO PRN (08:52)
[2024-03-11] MEDS: CefTRIAXone 2gm/D5W 50ml BAG 50 ML IV SCH (11:06)
[2024-03-11 11:30] VITALS: BP 133/91; PULSE 85; RESP 14; TEMP 98.5; O2SAT 98
[2024-03-11 18:00] VITALS: BP 156/105; PULSE 84; RESP 22; TEMP 98.1; O2SAT 97
[2024-03-11 22:00] VITALS: BP 144/98; PULSE 90; RESP 20; TEMP 97.7; O2SAT 96
[2024-03-12 02:30] VITALS: BP_SYST 117; BP_SYST 156; BP_DIAS 105; BP_DIAS 74; PULSE 74; PULSE 84; RESP 16; RESP 22; TEMP 97.2; TEMP 98.1; O2SAT 97; O2SAT 98
[2024-03-12 05:49] LABS: BASOPHILS % (AUTO) 0.1 % (0-1); EOSINOPHILS # (AUTO) 0.1 X10'3 (0-0.9); EOSINOPHILS % (AUTO) 1.1 % (0-6); HEMATOCRIT 34.5 % (42.0-52.0); HEMOGLOBIN 11.5 g/dl (14.0-17.9); LYMPHOCYTES # (AUTO) 1.1 X10'3 (1.1-4.8); LYMPHOCYTES % (AUTO) 14.4 % (21-51); MEAN CORPUSCULAR HEMOGLOBIN 27.6 PG (27.0-31.0); MEAN CORPUSCULAR HGB CONC 33.2 g/dL (33.0-36.5); MEAN CORPUSCULAR VOLUME 83.2 FL (78-98); MEAN PLATELET VOLUME 10.9 FL (7.4-10.4); MONOCYTES # (AUTO) 1.1 X10'3 (0-0.9); MONOCYTES % (AUTO) 14.8 % (2-12); NEUTROPHILS # (AUTO) 5.4 X10'3 (1.8-7.7); NEUTROPHILS % (AUTO) 69.6 % (42-75); PLATELET COUNT 70 X10'3 (140-440); RED BLOOD COUNT 4.15 X10'6 (4.70-6.10); RED CELL DISTRIBUTION WIDTH 15.2 % (11.5-14.5); WHITE BLOOD COUNT 7.7 X10'3 (4.5-11.0)
[2024-03-12 06:00] VITALS: BP 127/86; PULSE 83; RESP 15; TEMP 98; O2SAT 96
[2024-03-12 06:04] LABS: ALBUMIN 2.2 G/DL (3.4-5.0); ANION GAP 10 (8-16); BLOOD UREA NITROGEN 19 MG/DL (7-18); BUN/CREATININE RATIO 20.9 (10.0-20.0); CALCIUM 7.5 MG/DL (8.5-10.1); CHLORIDE 105 MMOL/L (99-107); CREATININE 0.91 MG/DL (0.60-1.10); GLUCOSE 123 MG/DL (70-104); MAGNESIUM 1.8 MG/DL (1.5-2.4); PHOSPHORUS 3.5 MG/DL (2.3-4.5); POTASSIUM 3.4 MMOL/L (3.5-5.1); SODIUM 137 MMOL/L (135-145); TOTAL CARBON DIOXIDE 22.3 MMOL/L (24-32); eCRCL 117 ML/MIN; eGFR > 90 ML/MIN
[2024-03-12] MEDS ORDERED: CIPR-259 PO ×2 (10:09→12:43)
[2024-03-12] MEDS ORDERED: CARV6.253 PO (10:09)
[2024-03-12 11:00] VITALS: BP 146/95; PULSE 83; RESP 16; TEMP 98.7; O2SAT 97
== END 2024-03-12 12:48 | disposition home or self-care (01) | DRG 720 ==
LOC: ER 11:12 → ED HOLD 16:39 → PCU 3S 03-10 11:49
PROVIDERS: ADMIT Internal Medicine; ATTEND Internal Medicine
DX: A41.9 Sepsis, unspecified organism (principal); N17.0 Acute kidney failure with tubular necrosis; F17.210 Nicotine dependence, cigarettes, uncomplicated; F31.9 Bipolar disorder, unspecified; G43.909 Migraine, unspecified, not intractable, without status migrainosus; I10 Essential (primary) hypertension; B96.29 Other Escherichia coli [E. coli] as the cause of diseases classified elsewhere; R74.01 Elevation of levels of liver transaminase levels; D69.6 Thrombocytopenia, unspecified; N39.0 Urinary tract infection, site not specified; Z88.6 Allergy status to analgesic agent; Z79.899 Other long term (current) drug therapy; Z90.49 Acquired absence of other specified parts of digestive tract; Z86.718 Personal history of other venous thrombosis and embolism
CPT/HCPCS: 36415; 71045; 74176; 80048; 80053; 81001; 82150; 82550; 83605; 83690; 83735; 84100; 84145; 85007; 85025; 85651; 87040; 87077; 87081; 87186; 97161; 99285; A4314; A4346; A4355; A5200; A6258; G0378; J0696; J1170; J2270; J2405; J2543; J7030; J7120

== ENCOUNTER 2025-07-08 16:35 | Emergency (ER) | payer MEDICAID ==
[~2025-07-08] VITALS: Ht 185.4 cm; Wt 92.8 kg
[~2025-07-08 16:35] MED LIST changes: +AMLO10TA13 PO; -BETA15CR4 TOP; +CARV6.253 PO; -CHLO118M PO; -CLIN-214 PO; -DIPH25CA83 PO; -FAMO10TA41 PO; -HYDR-4383 PO; -HYDR28CR14 TOP; -IBUP-1985 PO; -IBUP-1986 PO; +LISI10TA27 PO; -METH4TAB3 PO; -ONDA4TAB12 PO; -ONDA4TAB6 PO; -PHEN-716 PO; -PHEN-824 PO; -PRED10TA PO; -PRED50TA PO; -marijuana
[2025-07-08 16:48] VITALS: TEMP 98.2
[2025-07-08 17:32] LABS: MEAN PLATELET VOLUME 9.8 FL (7.4-10.4); RED CELL DISTRIBUTION WIDTH 15.6 % (11.5-14.5)
[2025-07-08 17:43] LABS: CREATININE 1.01 MG/DL (0.60-1.10); TOTAL CARBON DIOXIDE 30.9 MMOL/L (24-32); eCRCL 104 ML/MIN; eGFR 80 ML/MIN
[2025-07-08 19:10] LABS: LEUKOCYTE ESTERASE ,URINE TRACE (Neg); NITRITES, URINE POSITIVE (Neg); OCCULT BLOOD,URINE LARGE (Neg)
[2025-07-08 19:16] LABS: UA COLLECTION TYPE NON-SPECIFIED
[2025-07-08 19:18] LABS: SQUAMOUS EPITHELIAL CELL,UR NONE SEEN /LPF (FEW)
[2025-07-08 19:56] VITALS: BP 123/79; PULSE 63; RESP 16; O2SAT 97
--- NOTE | 2025-07-08 20:59 | Physician Documentation ---
History of Present Illness ~ Chief Complaint: Catheter Problem Stated Complaint: CATHETER COMPLICATIONS Time Seen by MD: 18:09 Primary Medical Doctor: MARTA HODGE The patient is a 44-year-old male that reports to the emergency department for evaluation of catheter associated pain to the meatus of his penis. Patient has a chronic catheter patient Dr. Yun. Patient reports that he has had urine leaking around the base of the catheter and pain at the meatus. No fever nausea vomiting diarrhea reported. No other symptoms reported at this time. Medication Reconciliation Allergies: Coded Allergies: tramadol (Unverified Adverse Reaction, Unknown, VOMITING, 07/08/25) Scheduled Amlodipine Besylate (Amlodipine Besylate), 1 TAB PO DAILY, (Reported) Carvedilol (Carvedilol), 1 TAB PO Q12H Lisinopril (Lisinopril), 1 TAB PO DAILY, (Reported) Past Medical History Past Medical History: Headache, Migraine, Angina, Hypertension, UTI, Deep Vein Thrombosis, Bipolar, Depression Past Surgical History: cholecystectomy, orthopedic surgeries Other Past Surgical History: pericardial window Patient History: Patient reports no known family medical history. Smoking Status: Current every day smoker Alcohol Use: Occasionally Drug Use: marijuana Lives with: Spouse Lives In: Home Occupation: employed Review of Systems ROS As stated above in the HPI, otherwise all systems are reviewed and negative. Physical Exam Vital Signs: Temperature: 98.2, Source: Temporal, Heart Rate: 63, Respiratory Rate: 16, BP: 123/79, Pulse Oximetry: 97, Weight: 92.800 Oxygen Flow Rate: 0 Physical Exam VITALS: Reviewed and as above. GENERAL: Alert, no apparent distress. HEENT: Normocephalic, atraumatic, PERRL, EOMI, dry mucosa, no erythema RESPIRATORY: Lungs clear, normal breath sounds, no respiratory distress. CHEST: No accessory muscle use, no retractions CV: Regular rate, rhythm, no edema, no murmur, No: JVD GI: Soft, non-tender, bowels sounds present, no rebound, guarding, or rigidity BACK: No CVA tenderness, or swelling MUSCULOSKELETAL No deformities, no edema SKIN: Warm and dry, no rash NEURO: Oriented x4, No motor or sensory deficit PSYCH: Normal mood and affect, no agitation Progress Results/Orders Results/Orders Orders - GEETA MONTEZ LINOTYPIST Cult Urine + [address] (07/08/25 19:18) Sulfamethox/Trimetho. Ds Tab (Septra Ds (07/08/25 20:50) Completed Orders - GEETA MONTEZ LINOTYPIST Cbc/Diff (07/08/25 17:07) BMP (07/08/25 17:07) Ua W/Microscopic, Cult If Ind (07/08/25 18:52) Vital Signs 07/08/25 07/08/25 07/08/25 07/08/25 16:48 19:01 19:14 19:56 Temp 98.2 Pulse 80 77 63 Resp 16 16 16 16 B/P (MAP) 187/108 136/100 (112) 123/79 (94) Pulse Ox 98 98 97 O2 Flow Rate 0 0 Laboratory Tests Test 07/08/25 17:25 07/08/25 18:52 White Blood Count 9.6 Red Blood Count 5.20 Hemoglobin 14.7 Hematocrit 43.4 Mean Corpuscular Volume 83.5 Mean Corpuscular Hemoglobin 28.2 Mean Corpuscular Hemoglobin Concent 33.7 Red Cell Distribution Width 15.6 H Platelet Count 214 Mean Platelet Volume 9.8 Neutrophils (%) (Auto) 67.7 Lymphocytes (%) (Auto) 22.2 Monocytes (%) (Auto) 7.8 Eosinophils (%) (Auto) 1.9 Basophils (%) (Auto) 0.4 Neutrophils # (Auto) 6.5 Lymphocytes # (Auto) 2.1 Monocytes # (Auto) 0.8 Eosinophils # (Auto) 0.2 Basophils # (Auto) 0.0 CBC Comment Sodium Level 146 H Potassium Level 3.8 Chloride Level 109 H Carbon Dioxide Level 30.9 Anion Gap 6 L Blood Urea Nitrogen 18 Creatinine 1.01 Estimated GFR/1.73 m2 80 BUN/Creatinine Ratio 17.8 Glucose Level 113 H Calcium Level 8.4 L Albumin 3.9 Chemistry Comments Urine Specimen Description Non-specified Urine Color Yellow Urine Clarity Cloudy Urine pH 6.0 Urine Specific [place] >=1.030 Urine Protein >=300 H Urine Glucose (UA) Negative Urine Ketones Negative Urine Occult Blood Large H Urine Nitrite Positive H Urine Bilirubin Small Urine Urobilinogen 0.2 Urine Leukocyte Esterase Trace H Urine RBC Tntc Urine WBC Tntc H Urine Squamous Epithelial Cells None seen Urine Bacteria 4+ Urine Culture Indicated Indicated Volume Urine Centrifuged 10 ml Urine Comment Microbiology Date/Time Source Procedure Growth Status 07/08/25 19:18 Urine Nonspecified Urine Culture - Preliminary Culture received. Resulted Medical Decision Making Findings This patient presents with symptoms consistent with catheter associated UTI No systemic symptoms. Not septic. Well appearing. Low suspicion for acute pyelonephritis given lack of fever, CVAT, or systemic features. Low suspicion for kidney stone or infected stone. Patient is a chronic catheter patient of Dr. Shelton's. Patient follow saw the patient's evening reports that the catheter is fine please do not replace the catheter. Patient has been prescribed antibiotic to treat the UTI, 1st dose given here. Patient will be given 3 days of pain medication for the discomfort of the Dawn. Patient follow up with his primary care provider. Patient will follow up with Dr. Shelton. Return to the emergency department with any worsening of his current symptoms that we discussed here today i.e. fever chills nausea vomiting flank pain blood in his urine inability to urinate or any other concerning symptoms that we discussed here today. Urinary Diff Dx:Considerations: Include: AAA, Aortic dissection, Appendicitis, Appendicitis train, Bowel obstruction, Bladder outlet obstruc., Cholelithiasis, Choleangitis, Cholecystitis, DJD, Epididymitis, Hepatitis, HNP, Impaction, Muscu loskeletal pain, Pancreatitis, Postoperative Comp., Prostatitis, Pyelonephritis, Renal failure, Renal infarction, Strain, Urolithiasis, Urinary Obstruction, Urethritis, Urinary retention, UTI, Other Genital Diff Dx:Considerations: Include: Abscess, Balanitis, Balanoposthitis, Cellulitis, Epididymitis, Entrapment injury, Doreen's gangrene, Foreign body, Facture penis, Hydrocele, Inguinal hernia, Post-op Complication, Paraphimosis, Prostatitis, Priapism, Syphilis, Testicular torsion, Torsion-epididymis, Torsion-appendiceal, Urinary retention, Urethritis, Urethritis-chlamydial, Urethritis-gonococcal, UTI, Other Departure Disposition: 01 HOME / SELF CARE / HOMELESS Impression: Primary Impression: Urinary tract infection Additional Impressions: Chronic indwelling Dawn catheter Pain Urinary catheter complication Condition: Stable Discharge Instructions: Indwelling Urinary Catheter Care, Adult Additional Instructions: This patient presents with symptoms consistent with catheter associated UTI No systemic symptoms. Not septic. Well appearing. Low suspicion for acute py elonephritis given lack of fever, CVAT, or systemic features. Low suspicion for kidney stone or infected stone. Patient is a chronic catheter patient of Dr. Shelton's. Patient follow saw the patient's evening reports that the catheter is fine please do not replace the catheter. Patient has been prescribed antibiotic to treat the UTI, 1st dose given here. Patient will be given 3 days of pain medication for the discomfort of the Dawn. Patient follow up with his primary care provider. Patient will follow up with Dr. Shelton. Return to the emergency department with any worsening of his current symptoms that we discussed here today i.e. fever chills nausea vomiting flank pain blood in his urine inability to urinate or any other concerning symptoms that we discussed here today. Referrals: NO PRIMARY CARE PROVIDER (PCP) Prescriptions Hydrocodone Bit/Acetaminophen 5/325 MG ([facility] 5/325 MG) 5 Mg/325 Mg Tablet 1 TAB PO Q6H PRN for pain for 3 Days, #12 TAB Prov: GEETA MONTEZ 07/08/25 Sulfamethoxazole/Trimethoprim (Bactrim Ds Tablet) 800 Mg-160 Mg Tablet 1 TAB PO Q12H for 10 Days, #20 TAB Prov: GEETA MONTEZ 07/08/25 Education Educated: Patient Educated regarding: diagnosis, treatment, prognosis, need for follow up Signature Scribe Signature: A Attestation: Scribed for Geeta Montez by TREASURE Bonilla . 07/08/25 21:02 GEETA MONTEZ Jul 08, 2025 20:59
[2025-07-08] MEDS ORDERED: SULF1TAB49 PO (21:01)
[2025-07-08] MEDS ORDERED: HYDR-3965 PO (21:01)
[2025-07-08] MEDS: sulfamethoxazole/trimethoprim DS (800/160mg) tablet PO ONE (21:09)
[2025-07-08] MEDS: HYDROcodone/acetaminophen 5mg/325mg tablet PO ONE (21:44)
== END 2025-07-08 21:48 | disposition home or self-care (01) ==
LOC: ER 16:36
DX: N39.0 Urinary tract infection, site not specified (principal); T83.038A Leakage of other urinary catheter, initial encounter; F31.9 Bipolar disorder, unspecified; I10 Essential (primary) hypertension; G43.909 Migraine, unspecified, not intractable, without status migrainosus; F12.90 Cannabis use, unspecified, uncomplicated; F17.200 Nicotine dependence, unspecified, uncomplicated; Z88.5 Allergy status to narcotic agent; Z90.49 Acquired absence of other specified parts of digestive tract; Y92.89 Other specified places as the place of occurrence of the external cause
CPT/HCPCS: 36415; 51798; 80048; 81001; 85025; 87088; 87186; 99284; A6449